=== PATIENT | female | born 1995 | race Caucasian/White ===

== ENCOUNTER 2022-01-08 15:30 | Outpatient (NON) | payer OTHER, SELFPAY ==
[2022-01-08 18:59] LABS: Beta HCG Quantitative < 2.39 mIU/ML
[2022-01-08 19:23] LABS: HIV 1/2 Ab P24 Ag Result Negative (Negative)
[2022-01-08 19:30] LABS: Hepatitis C Virus Antibody Negative (Negative)
[2022-01-09 16:18] LABS: Rapid Plasma Reagin Non-Reactive (NonReactive)
[2022-01-11 14:46] LABS: Hepatitis B Core Ab Total Nonreactive
[2022-01-14 07:54] LABS: Herpes Simplex Type 1 DNA PCR Not Detected; Herpes Simplex Type 2 DNA PCR Not Detected
== END 2022-01-08 15:31 | disposition home or self-care (01) ==
LOC: ANHGOSHLAB 15:32
PROVIDERS: PCP Internal Medicine; Visit Provider Clinical Nurse Specialist
DX: N92.6 Irregular menstruation, unspecified (principal); Z20.2 Contact with and (suspected) exposure to infections with a predominantly sexual mode of transmission
CPT/HCPCS: 36415; 84702; 86592; 86703; 86704; 86803; 87491; 87529; 87591; G0432

== ENCOUNTER 2023-03-17 07:23 | Outpatient (CLI) | payer OTHER, SELFPAY ==
--- NOTE | 2023-03-17 07:28 | ECHO_ITS ---
Patient Info Name: Kayla Jose Age: 27 years : 1995 Gender: Female Ht: 65 in Wt: 132 lbs BSA: 1.66 m2 HR: 66 bpm BP: 114 / 73 mmHg Heart Rhythm: Sinus Rhythm Technical Quality: Good Exam Date: 03/17/2023 7:45 AM Exam Location: Echo Lab Patient Status: Outpatient Admit Date: 03/17/2023 Staff Ordering Physician: Aurelia Mueller Soubrette: Yolanda Baca RDCS Attending Provider: Aurelia Mueller Referring Physician: Ervin MICHELE; Exam Type: CA echo doppler color flow Study Info Indications - Prescence of prosthetic heart valve Complete two-dimensional, color flow and Doppler transthoracic echocardiogram is performed. Summary 1. Complete two-dimensional, color flow and Doppler transthoracic echocardiogram is performed. 2. Normal left and right ventricular systolic and diastolic function. 3. Prosthetic aortic valve which is nonstenotic there is a trivial jet of prosthetic AI. 4. The type of aortic prosthesis was not specified on this request, identity valve therefore not known to me. Left Ventricle Left ventricular chamber dimension is normal. Left ventricular systolic function is normal, estimated at 60-65%. The left ventricular diastolic function is normal. Right Ventricle Right ventricular chamber dimension is normal. Left Atria Left atrial chamber dimension is normal. Right Atria Right atrial chamber dimension is normal. Aortic Valve There is trace regurgitation of the prosthetic aortic valve. Pulmonic Valve The pulmonic valve is not well visualized. Mitral Valve The mitral valve has normal leaflets. Tricuspid Valve The tricuspid valve leaflets are normal. Pericardium/Pleural The pericardium appears normal. Aorta The aortic root size at the sinus of Valsalva is normal. Left Ventricular Outflow Tract Name Value Normal LVOT 2D LVOT Diameter 2.0 cm LVOT Doppler LVOT Peak Gradient 2 mmHg LVOT Mean Gradient 1 mmHg LVOT VTI 16 cm LVOT VTI/AV VTI Ratio 0.4 LVOT Stroke Volume 50 ml LVOT CO 2.9 l/min LVOT CI 1.8 l/min/m2 Pulmonic Valve Name Value Normal RVOT Doppler RVOT Peak Gradient 3 mmHg PV Doppler PV Peak Gradient 18 mmHg Mitral Valve Name Value Normal MV Doppler MV Decel [place] 560 cm/s2 MV PHT 47 ms MV Area (PHT) 4.7 cm2 4.0-5
== END 2023-03-17 07:24 | disposition home or self-care (01) ==
LOC: ANHCARD 07:24
PROVIDERS: PCP Internal Medicine; Visit Provider Clinical Nurse Specialist
DX: Z95.2 Presence of prosthetic heart valve (principal)
CPT/HCPCS: 93306

== ENCOUNTER 2024-08-17 10:50 | Outpatient (CLI) | payer OTHER, SELFPAY ==
--- OUTSIDE RECORDS SUMMARY | 2024-08-17 11:57 | XMS_ITS | Encounter Summary ---
Author Organization [facility] Address [address] [place] [address] Care Team Providers Care Street Inspector Name Role Phone Eric Simmons DO Primary Care Provider Reason for Visit * Reason Comments Establish Care Encounter Details Date Type Department Care Team (Late st Contact Info) Description 08/17/2024 10:30 AM CDT Office Visit [facility] Oncology and Hematology - [place] [address] [facility] [address] [place] [address] Hermes Hernández MD [address] [facility] [address] [place] [address] Clotting disorder (Primary Dx) Social History Tobacco Use Types Packs/Day Years Used Date Smoking Tobacco: Never Smokeless Tobacco: Never Alcohol Use Standard Drinks/Week Comments Yes 0 (1 standard drink = 0.6 oz pur e alcohol) occasional Comments No Sex and Gender Information Value Date Recorded Sex Assigned at Not on file Legal Sex Female 9:11 AM CDT Gender Identity Not on file Sexual Orientation Not on file documented as of this encounter Last Filed Vital Signs Vital Sign Reading Time Taken Comments Blood Pressure 102/69 08/17/2024 10:10 AM CDT Pulse 60 08/17/2024 10:10 AM CDT Temperature 36.1 C (97 F) 08/17/2024 10:10 AM CDT Respiratory Rate 16 08/17/2024 10:1 0 AM CDT Oxygen Saturation 98% 08/17/2024 10: 10 AM CDT Inhaled Oxygen Concentration - - Weight 63.9 kg (140 lb 12.8 oz) 025 10:10 AM CDT Height 165.1 cm (5' 5) 08/17/2024 10:1 0 AM CDT Body Mass Index 23.43 08/17/2024 10:10 AM CDT documented in this encounter Progress Notes * Hermes Hernández MD - 08/17/2024 10:27 AM CDT Hematology-oncology consult Note Requesting Physician Eric Simmons, DO Primary Care Physician Eric Simmons, DO Problem list There is no problem list on file for this patient. Previous TREATMENT ? Measurable Disease ? Reason for Visit Kayla Jose is a 28 y.o. female who was referred for consultation for chronic anticoagulation management. History of present illness This is a pleasant 28-year-old female with history of congenital bicuspid aortic valve status post balloon valvuloplasty at age of 1 and then aortic valve replacement with Cole AVR 2018. Patient had ablation of atrial flutter done in January 2021. She has been on warfarin since 2018. Shemoved from [place] about 2 years ago. Currently she is taking warfarin 20 mg every other day basis. Her last PT/INR was 2.6 about 3 months ago. According to patient she runs around 1.8-2.5 INR. He denies any bleeding and bruising. She denies any other history of thromboembolic events including stroke and heart attack. She used to monitor PT/INR at home with a home monitor. She denies any other complaints. Past Medical History Past Medical History: Diagnosis Date Depression Congenital bicuspid aortic valve status post balloon valvuloplasty and subsequent aortic valve replacement in 2018 Atrial flutter status post ablation GERD Anxiety Surgical History Past Surgical History: Procedure Laterality Date ENDOMETRIAL ABLATION 2019 HX AORTIC VALVE REPLACEMENT 2015,2018 Medications Current Outpatient Medications Medication Sig Dispense Refill spironolactone (ALDACTONE) 25 mg tablet Take 25 mg by mouth daily. warfarin 1 mg tablet Take 1 mg by mouth daily. metoprolol succinate ER 50 mg tablet,extended release 24 hr Take 50 mg by mouth daily. No current facility-administered medications for this visit. Allergies No Known Allergies Immunizations: There is no immunization history on file for this patient. Family History Family History Problem Relation Name Age of Onset No Known Problems Father No Known Problems Mother No Known Problems Sister No Known Problems Sister No Known Problems Brother No Known Problems Child No Known Problems Child Social History Social History Tobacco Use Smoking status: Never Smokeless tobacco: Never Substance Use Topics Alcohol use: Yes Comment: occasional Review of Systems Constitutional: Patient did not mention fever; no night sweats; no anorexia; no weight loss; no fatique NEENT: Patient did not mention headache; no change in vision; no change in hearing; no sore throat;no dysphagia Respiratory: Patient did not mention shortness of breath; no pleuritic chest pain; no cough; no hemoptysis Cardiac: Patient did not mention cardiac-like chest pain; no palpitations; no orthopnea; no PND; noDOE Breasts: Patient did not mention tenderness; no masses GI: Patient did not mention abdominal pain; no nausea; no vomiting; no diarrhea; no hematochezia; no melena : Patient did not mention dysuria; no frequency; no hesitancy; no hematuria COMMERCIAL ANNOUNCER: Musculosketetal: Patient did not mention bone pain; no arthralgia; no joint swelling; no myalgia; Skin: Patient did not mention pruritis; no rash; no petechiae; no ecchymoses Endocrine: Patient did not mention polydipsia; no polyuria; no unusual weight gain Neuro: Patient did not mention headache; no change in vision; no sensory changes; no muscle weakness; no confusion; no seizures Psych: Patient did not mention anxiety; no depression; Physical Exam Vitals: As per nursing note Constitutional: Well developed, well nourished, no acute distress, non-toxic appearance Teeth and gum. No signs of infection or swelling. Eyes: PERRL, conjunctiva normal HEENT: Atraumatic, external ears normal, nose normal, oropharynx moist, no pharyngeal exudates. no sinus tenderness Neck- normal range of motion, no tenderness, supple Respiratory: No respiratory distress, normal breath sounds, no rales, no wheezing . Cardiovascular: Normal rate, normal rhythm, no murmurs, no gallops, no rubs GI: Soft, nondistended, normal bowel sounds, nontender, no splenomegaly, no hepatomegaly, no mass, no rebound, no guarding : No costovertebral angle tenderness Musculoskeletal: No edema, no tenderness, no deformities. Back- no tenderness Integument: Well hydrated, no rash, Digits and nails inspection normal Lymphatic: No lymphadenopathy noted Neurologic: Alert & oriented x 3, CN 2-12 normal, normal motor function, normal sensory function, no focal deficits noted Psychiatric: Speech and behavior appropriate ? labs No results found for this or any previous visit (from the past 24 hours). Pathology ? Imaging & Other Studies Performance Status? Assessment / Plan: ? Anticoagulation management. Patient is a pleasant 28-year-old female with history of congenital bicuspid aortic valve status post balloon valvuloplasty at age of 1 then subsequent aortic valve replacement with cole AVR 2018. Patient had ablation for the atrial flutter done in January 2021. She moved from [place] about 2 years ago[address] She seen Dr. Torres in the cardiology. Currently she is on warfarin 20 mg on every other day basis. I will check PT/INR today. Based on the INR we will decide about the warfarin dose. I prefer warfarin 20 mg on a daily basis but will make the decision after PT/INR reading. I will check PT/INR on every 2-week basis until her INR stabilizes on a daily do sing. I also recommended getting a PT/INR to monitor. We also discussed teratogenic effect of warfarin and suggested using copper IUD. I recommended avoiding oral control pills due to risk of thromboembolic events. I have answered all the questions to patient satisfaction. I will discuss the labs next week. Atrial flutter status post ablation done in February 15, 2021. She is on warfarin and aspirin. She will follow-up with Dr. Torres. Thank you very much for allowing me to participate in Kayla Jose's evaluation and management. Please feel free to contact if I can be of any further assistance in your patient???s care requiring hematology or oncology evaluation. Sincerely, ? ? Hermes Hernández M.D. cell TOBACCO COUNSELING She is not a tobacco/nicotine user. Hermes Hernández MD ,08/17/2024 10:59 AM ? Total time spent 60 minutes, two third of the total time spent counseling patient [id number]. CC:?Eric Simmons DO documented in this encounter Plan of Treatment Upcoming Encounters Date Type Department Care Team (Late st Contact Info) Description 08/24/2024 4:30 PM CDT Telephone Check Up [facility] Oncology and Hematology - [place] [address] [facility] [address] [place] [address] Hermes Hernández MD [address] [facility] [address] [place] [address] Scheduled Orders Name Type Priority Associated Diagnoses Orde r Schedule PROTIME-INR Lab Routine Clotting disorder Expected: 08/17/2024, Expires: 08/17/2025 documented as of this encounter Visit Diagnoses Diagnosis Clotting disorder- Primary Other and unspecified coagulation defects documented in this encounter Care Teams Street Inspector Relationship Specialty Start Date End Date Eric Simmons DO [address] [facility] [address] [place] [address] PCP - General 08/20/22 documented as of this encounter
--- OUTSIDE RECORDS SUMMARY | 2024-08-17 11:57 | XMS_ITS | Clinical Summary ---
Author Organization [facility] on Address [address] [place] [id number] Care Team Providers Care Benefit Specialist Name Role Phone Eric Simmons DO Primary Care Provider Allergies No known active allergies Medications warfarin 1 mg tablet Take 1 mg by mouth daily. 10/24/2021 Active metoprolol succinate ER 50 mg tablet,extended release 24 hr Take 50 mg by mouth daily. 10/23/2021 Active spironolactone (ALDACTONE) 25 mg tablet Take 25 mg by mouth daily. Active Active Problems No known active problems Encounters Date Type Department Care Team Description 08/17/2024 10:30 AM CDT Office Visit [facility] Oncology and Hematology - [place] [address] [address] [address] Hermes Hernández MD Clotting disorder (Primary Dx) from Last 3 Months Family History Medical History Relation Name Comments No Known Problems Brother No Known Problems Child 1 No Known Problems Child 2 No Known Problems Father No Known Problems Mother No Known Problems Sister 1 No Known Problems Sister 2 Relation Name Status Comments Brother Alive Child 1 Alive Child 2 Alive Father Alive Mother Sister 1 Alive Sister 2 Alive Social History Tobacco Use Types Packs/Day Years Used Date Smoking Tobacco: Never Smokeless Tobacco: Never Alcohol Use Standard Drinks/Week Comments Yes 0 (1 standard drink = 0.6 oz pur e alcohol) occasional Comments No Sex and Gender Information Value Date Recorded Sex Assigned at Not on file Legal Sex Female 9:11 AM CDT Gender Identity Not on file Sexual Orientation Not on file Last Filed Vital Signs Vital Sign Reading [...] Mass Index 23.43 08/17/2024 10:10 AM CDT Plan of Treatment Upcoming Encounters Date Type Department Care Team (Late st Contact Info) Description 08/24/2024 4:30 PM CDT Telephone Check Up [facility] Oncology and Hematology [facility] [address] [facility] [address] [place] [address] Hermes Hernández MD [address] [facility] [address] [place] [address] Health Maintenance Due Date Last Done Comments HEPATITIS B VACCINES (1 of 3 - 19+ 3-dose series) 2012 HPV/Cotest (21-29) 2014 CERVICAL CANCER SCREENING 08/28/2023 HPV/Cotest (30-65) 08/28/2023 PAP SMEAR 08/28/2023 INFLUENZA VACCINE (#1) 2023 0, 12/22/2017, 01/03/2015, Additional history exists DTAP/TDAP/TD VACCINES (2 - Td or Tdap) 01/22/2024 01/21/2014 Preventative Visit- Commercial 03/03/2024 HPV VACCINES Aged Out No longer eligi ble based on patient's age to complete this topic Insurance [facility] [employer] Care Teams Benefit Specialist Relationship Specialty Start Date End Date Eric Simmons DO [address] [facility] [address] [place] [address] PCP - General 08/20/22
--- OUTSIDE RECORDS SUMMARY | 2024-08-17 11:57 | XMS_ITS | Continuity of Care Document ---
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 It does not include entries that were removed or entered in error. Problem Status Onset Date Problem Type Date of Resolution Comments Source Generalized anxiety disorder Active 08/07/2017 Condition DoD Adjustment disorder with mixed anxiety and depressed mood Active 12/07/2014 Condition DoD visit for: exam supervision Active Condition DoD visit for: screening exam depression Active Condition DoD breast pain Active Condition DoD PUERPERAL COMPLICATIONS CONDITION OR COMPLICATION Active Condition DoD itching (pruritus) Inactive Condition Do D heartburn Inactive Condition [facility] Vaccines Prophylactic Need Against DTP Inactive Condition DoD Supervision Of Normal First Inactive Condition DoD nausea Inactive Condition DoD PREG COMPLICATIONS: ANTEPARTUM COND OR PRIOR COMP DELIVERY Inactive Condition DoD AORTIC STENOSIS Active Condition DoD CLASSIC MIGRAINE (WITH AURA) Active Condition DoD Medications Combined list of outpatient medications from Department of Defense and Veterans Affairs facilities.Medications provided include 1) outpatient medications from the last 15 months, and 2) patient-reported medications. Medication Details Route Status Patient Instructions Prescription Expires Prescription Number Last Dispense Date Ordering Provider Order Date Order Qty Source amoxicillin 500 mg oral capsule 0 total refill(s ) Ordered 2021 No Facilit y Access amoxicillin 500 mg oral capsule 0 total refill(s ) Ordered 2021 No Facilit y Access amoxicillin 500 mg oral capsule 0 total refill(s ) Ordered 2021 No Facilit y Access cephalexin 500 mg oral capsule 0 total refill(s ) Ordered 2021 No Facilit y Access enoxaparin 60 mg/0.6 mL injectable solution enoxapar in 60 mg/0.6 mL injectab le solution Start Date: 02/22/21 Status: Ordered Repeat number: 1 Ordered 2021 No Facilit y Access enoxaparin 60 mg/0.6 mL injectable solution enoxapar in 60 mg/0.6 mL injectab le solution Start Date: 02/27/21 Status: Ordered Repeat number: 1 Ordered 2021 No Facilit y Access enoxaparin 60 mg/0.6 mL injectable solution enoxapar in 60 mg/0.6 mL injectab le solution Start Date: 02/09/21 Status: Ordered Repeat number: 1 Ordered 2021 No Facilit y Access enoxaparin 60 mg/0.6 mL injectable solution enoxapar in 60 mg/0.6 mL injectab le solution Start Date: 11/30/20 Status: Ordered Repeat number: 1 Ordered 2021 No Facilit y Access enoxaparin 60 mg/0.6 mL injectable solution enoxapar in 60 mg/0.6 mL injectab le solution Start Date: 11/26/20 Status: Ordered Repeat number: 1 Ordered 2021 No Facilit y Access FLUoxetine 20 mg oral capsule FLUoxeti ne 20 mg oral capsule Start Date: 03/17/21 Status: Ordered Repeat number: 1 Ordered 2021 No Facilit y Access hydrocortis one 25 mg rectal suppository hydrocor tisone 25 mg rectal supposit ory Start Date: 10/18/20 Status: Ordered Repeat number: 1 Ordered 2021 No Facilit y Access HYDROXYZINE HCL (HYDROXYZIN E HCL), 25 MG, TABLET, ORAL, TEVA [place], 500 ea. BOTTLE Cancele d [id number] : 2023 0 Pharmac y Data Transac tion Service Facilit y hydrOXYzine hydrochlori de 25 mg oral tablet hydrOXYz ine hydrochl oride 25 mg oral tablet Start Date: 03/17/21 Status: Ordered Repeat number: 1 Ordered 2021 No Facilit y Access hyoscyamine 0.125 mg oral tablet hyoscyam ine 0.125 mg oral tablet Start Date: 01/09/21 Status: Ordered Repeat number: 1 Ordered 2021 No Facilit y Access ISOtretinoi n 30 mg oral capsule ISOtreti noin 30 mg oral capsule Start Date: 09/24/20 Status: Ordered Repeat number: 1 Ordered 2021 No Facilit y Access ISOtretinoi n 30 mg oral capsule ISOtreti noin 30 mg oral capsule Start Date: 08/27/20 Status: Ordered Repeat number: 1 Ordered 2021 No Facilit y Access ISOtretinoi n 30 mg oral capsule ISOtreti noin 30 mg oral capsule Start Date: 06/10/20 Status: Ordered Repeat number: 1 Ordered 2021 No Facilit y Access ISOtretinoi n 30 mg oral capsule ISOtreti noin 30 mg oral capsule Start Date: 05/07/20 Status: Ordered Repeat number: 1 Ordered 2021 No Facilit y Access ISOtretinoi n 40 mg oral capsule ISOtreti noin 40 mg oral capsule Start Date: 04/09/20 Status: Ordered Repeat number: 1 Ordered 2021 No Facilit y Access metoprolol succinate 50 mg oral tablet, extended release metoprol ol succinat e 50 mg oral tablet, extended release Start Date: 02/21/21 Status: Ordered Repeat number: 1 Ordered 2021 No Facilit y Access nitrofurant oin macrocrysta ls-monohydr ate 100 mg oral capsule 0 total refill(s ) Ordered 2021 No Facilit y Access NORETHINDRO NE (norethindr one), 0.35 MG, TABLET, ORAL, MYLAN, 28 ea. BLIST PACK Active [id number] 2023 84 Pharmac y Data Transac tion Service Facilit y norgestimat e-ethinyl estradiol 35 mcg oral tablet norgesti mate-eth inyl estradio l 35 mcg oral tablet Start Date: 09/24/20 Status: Ordered Repeat number: 1 Ordered 2021 No Facilit y Access norgestimat e-ethinyl estradiol 35 mcg oral tablet norgesti mate-eth inyl estradio l 35 mcg oral tablet Start Date: 07/09/20 Status: Ordered Repeat number: 1 Ordered 2021 No Facilit y Access norgestimat e-ethinyl estradiol 35 mcg oral tablet norgesti mate-eth inyl estradio l 35 mcg oral tablet Start Date: 08/26/20 Status: Ordered Repeat number: 1 Ordered 2021 No Facilit y Access sertraline 50 mg oral tablet sertrali ne 50 mg oral tablet Start Date: 02/06/21 Status: Ordered Repeat number: 1 Ordered 2021 No Facilit y Access sertraline 50 mg oral tablet sertrali ne 50 mg oral tablet Start Date: 01/04/21 Status: Ordered Repeat number: 1 Ordered 2021 No Facilit y Access SUMAtriptan 100 mg oral tablet SUMAtrip rodriguez 100 mg oral tablet Start Date: 02/06/21 Status: Ordered Repeat number: 1 Ordered 2021 No Facilit y Access SUMAtriptan 100 mg oral tablet SUMAtrip rodriguez 100 mg oral tablet Start Date: 11/15/20 Status: Ordered Repeat number: 1 Ordered 2021 No Facilit y Access SUMAtriptan 100 mg oral tablet SUMAtrip rodriguez 100 mg oral tablet Start Date: 05/23/20 Status: Ordered Repeat number: 1 Ordered 2021 No Facilit y Access topiramate 50 mg oral tablet topirama te 50 mg oral tablet Start Date: 02/06/21 Status: Ordered Repeat number: 1 Ordered 2021 No Facilit y Access topiramate 50 mg oral tablet topirama te 50 mg oral tablet Start Date: 09/24/20 Status: Ordered Repeat number: 1 Ordered 2021 No Facilit y Access topiramate 50 mg oral tablet topirama te 50 mg oral tablet Start Date: 05/23/20 Status: Ordered Repeat number: 1 Ordered 2021 No Facilit y Access tretinoin 0.025% topical cream tretinoi n 0.025% topical cream Start Date: 02/06/21 Status: Ordered Repeat number: 1 Ordered 2021 No Facilit y Access tretinoin 0.025% topical cream tretinoi n 0.025% topical cream Start Date: 11/05/20 Status: Ordered Repeat number: 1 Ordered 2021 No Facilit y Access valACYclovi r 500 mg oral tablet 3 total refill(s ) Ordered 2021 No Facilit y Access verapamil 120 mg/12 hours oral tablet, extended release verapami l 120 mg/12 hours oral tablet, extended release Start Date: 02/06/21 Status: Ordered Repeat number: 1 Ordered 2021 No Facilit y Access verapamil 120 mg/12 hours oral tablet, extended release verapami l 120 mg/12 hours oral tablet, extended release Start Date: 11/06/20 Status: Ordered Repeat number: 1 Ordered 2021 No Facilit y Access verapamil 120 mg/12 hours oral tablet, extended release verapami l 120 mg/12 hours oral tablet, extended release Start Date: 12/04/20 Status: Ordered Repeat number: 1 Ordered 2021 No Facilit y Access warfarin 10 mg oral tablet warfarin 10 mg oral tablet Start Date: 03/28/21 Status: Ordered Repeat number: 1 Ordered 2021 No Facilit y Access warfarin 3 mg oral tablet warfarin 3 mg oral tablet Start Date: 02/06/21 Status: Ordered Repeat number: 1 Ordered 2021 No Facilit y Access warfarin 3 mg oral tablet warfarin 3 mg oral tablet Start Date: 11/30/20 Status: Ordered Repeat number: 1 Ordered 2021 No Facilit y Access warfarin 5 mg oral tablet warfarin 5 mg oral tablet Start Date: 08/23/20 Status: Ordered Repeat number: 1 Ordered 2021 No Facilit y Access warfarin 6 mg oral tablet warfarin 6 mg oral tablet Start Date: 09/24/20 Status: Ordered Repeat number: 1 Ordered 2021 No Facilit y Access warfarin 6 mg oral tablet warfarin 6 mg oral tablet Start Date: 05/23/20 Status: Ordered Repeat number: 1 Ordered 2021 No Facilit y Access WARFARIN SODIUM (WARFARIN SODIUM), 10MG, TABLET, ORAL, TARO PHARM [place], 100 ea. BOTTLE Cancele d [id number] : 2023 0 Pharmac y Data Transac tion Service Facilit y WARFARIN SODIUM (WARFARIN SODIUM), 10MG, TABLET, ORAL, [employer] [place], 100 ea. BOTTLE Cancele d [id number] : 2023 0 Pharmac y Data Transac tion Service Facilit y Allergies, Adverse Reactions, Alerts Combined list of allergies from Department of Defense and Veterans Affairs facilities. It does not include entries that were removed or entered in error. Substance Category Reaction Severity Reaction type Status Date Reported Comments Source No Known Allergies Drug allergy (disorder) active 08/12/2013 USAMEDDA C [facility] Immunizations Combined list of available immunizations from the Department of Defense and Veterans Affairs facilities. Immunization Series Date Given Administered By Site Reaction Lot Number CVX Code Drug Marketing Operations Analyst Status Comments Source influenza, injectable, quadrivalent 2017 Heidi Arm [id number] [employer] complet ed influenza , injectabl e, quadrival ent 12/22/17 Given Ambulat ory Pharmac y influenza, injectable, quadrivalent, contains preservative 1 2017 MIMACARANOLAN D [id number] [place] ([place]) complet ed influenza , injectabl e, quadrival ent, contains preservat maryjane DoD influenza, live, intranasal,qu adrivalent 2014 [id number] [employer] comple t ed influenza , live, intranasa l,quadriv alent 01/03/15 Given Ambulat ory Pharmac y influenza, live, intranasal, quadrivalent 0 2014 GELACIO MENJIVAR [id number] [facility] [employer] (MED) complet ed influenza , live, intranasa l, quadrival ent DoD tetanus, diphtheria, acellular pertu is 2013 zDavidef t Arm [id number] 115 [employer] complet ed tetanus, diphtheri a, acellular pertussis 01/21/14 Given Ambulat ory Pharmac y tetanus toxoid, reduced diphtheria toxoid, and acellular pertu is vaccine, adsorbed 0 2013 NAYE BUNCH [id number] 115 [facility] ([facility]) complet ed tetanus toxoid, reduced diphtheri a toxoid, and acellular pertussis vaccine, adsorbed DoD influenza, seasonal, injectable-pf 2013 zzLef t Arm [id number] [employer] [facility] complet ed influenza , seasonal, injectabl e-pf 12/30/13 Given Ambulat ory Pharmac y Influenza, seasonal, injectable, preservative free 0 2013 STEVE WILKINS [id number] [employer] 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 Location Location Details Encounter Type Encounter Number Reason For Visit Attending Provider ADM Date DC Date Status Disposition Source [place] OUTPATIENT [id number] [facility] Zonia / first appoint ment with provide YESENIA Conte 08/12 Released w/o Limitations [place] [place] [place] TELE CONSULT [id number] Notes Entered by: YESENIA GIBBS 12 Aug 2013 1616 ------- ------- ------- ------- -- positiv e pregnan cy JOE Argueta 08/12 [place]erred [place] Appointment [place] [place] [place] TELE CONSULT [id number] Notes Entered by: RUBEN HERRERA 17 Aug 2013 1005 ------- ------- ------- ------- -- OB intake RUBEN HERRERA 08/17 [place] for Appointment [place] F01A Red) [place] [employer] Hel[employer] at [facility]) TELE CONSULT [id number] Notes Entered by: STEVE WILKINS 20 Aug 2013 1420 ------- ------- ------- ------- -- appt to [facility] STEVE WILKINS 08/20 [place]erred for Appointment [place] [employer] [facility] at [facility]) [place] [employer] Layer Hel[employer] at [facility]) TELE CONSULT [id number] Notes Entered by: Yecenia GARCIA 23 Aug 2013 1000 ------- ------- ------- ------- -- appt to [facility] PARKER GARCIA 08/23 Referred for Appointment [facility] [place] [employer] at [facility]) [place] F01A Red) TELE CONSULT [id number] Notes Entered by: RUBEN HERRERA 24 Aug 2013 0910 ------- ------- ------- ------- -- Referra l request via [facility] YESENIA GIBBS 08/24 [place] [place] [employer] at [facility]) OUTPATIENT [id number] OR REG / HAS CELESTE BACA 08/31 Released w/o Limitations [place] [employer] [facility] at [facility]) [place] [employer] Layer Hel[employer] at [facility]) TELE CONSULT [id number] Notes Entered by: IMANI BATEMAN 13 Sep 2013 1513 ------- ------- ------- ------- -- request NOLAN Sevilla 09/13 [place] [employer] [facility] at [facility]) [place] [employer] Hel[employer] at [facility]) OUTPATIENT [id number] [facility] OB JAVI WOOD 10/04 Released w/o Limitations [place] [employer] at [facility]) [place] [place] TELE CONSULT [id number] Notes Entered by: TATE RAY 12 Oct 2013 1011 ------- ------- ------- ------- -- referra l request YESENIA GIBBS 10/12 [facility] [place] [place] [place] [employer] Hel[employer] at [facility]) TELE CONSULT [id number] Notes Entered by: STEVE WILKINS 12 Oct 2013 1307 ------- ------- ------- ------- -- STEVE Smith 10/12 [place]erred for Appointment [place] [employer] [facility] at [facility]) [place] [employer] Hel[facility] at [facility]) OUTPATIENT [id number] PAULO Mendoza 10/14 [place]ased w/o Limitations [place] [facility] at [facility]) [place] [employer] Layer Hel[employer] at [facility]) TELE CONSULT [id number] Notes Entered by: IMANI BATEMAN 20 Oct 2013 0922 ------- ------- ------- ------- -- stomach bug greater than 24 hours LUPE BATEMAN 10/20 Medication Refill Forwarded [facility] [place] [employer] at [facility]) [place] [employer] Hel[employer] at [facility]) OUTPATIENT [id number] DOROTA Ludwig 11/04 Released w/o Limitations [facility] [place] [facility] at [facility]) [place] [employer] at [facility]) OUTPATIENT [id number] 17 weeks possibl e BV (book per Imani shipman)DOROTA Mcclellan 11/08 Released w/o Limitations [facility] [place] [facility] at [facility]) [facility] [place] [employer] at [facility]) OUTPATIENT [id number] DOROTA Ludwig 11/25 Released w/o Limitations [facility] [place] [facility] at [facility]) [facility] [employer] Hel[employer] at [facility]) OUTPATIENT [id number] DOROTA Ludwig 12/30 [place]ased w/[place] Limitations [place] [employer] [facility] [employer] Hel[employer] at [facility]) OUTPATIENT [id number] Notes Entered by: KWAME ELENA 02 Feb 2014 0939 ------- ------- ------- ------- -- pt was seen DOROTA Bell 02/02 Released w/o Limitations [facility] [place] [facility] [place] [employer] Hel[employer] at [facility]) OUTPATIENT [id number] 34 week DOROTA Raza 03/10 Released w/o Limitations [facility] [place] [employer] [facility] at [facility]) [facility] [place] [employer] at [facility]) OUTPATIENT [id number] DOROTA Ludwig 03/17 Released w/o Limitations [place] [employer] at [facility]) [place] [facility] ) OUTPATIENT [id number] Notes Entered by: JENN COLLAZO 22 Mar 2014 0750 ------- ------- ------- ------- -- L&D outpati NAZANIN Ascencio 03/22 Released w/o Limitations [facility] [place] [employer] at [facility]) OUTPATIENT [id number] DOROTA Ludwig 03/31 Released w/o Limitations [facility] [place] [facility] [facility] [facility] [place] at [facility]) OUTPATIENT [id number] DOROTA Ludwig 04/07 Released w/o Limitations [place] [employer] [facility] at [facility]) [place] [employer] at [facility]) OUTPATIENT [id number] centeri stefano DOROTA DANIEL 04/14 Released w/o Limitations [place] [employer] Layer Hel[facility] at [facility]) [facility] DIRECT TO [facility] FROM OTHER THAN ER OR [facility] [id number] NOLAN LACKEY Camelia 04/19 DISCHARGED HOME USAMEDD [place] [employer] Hel[employer] at [facility]) OUTPATIENT [id number] post DOROTA DANIEL 06/09 Released w/o Limitations [place] [employer] at [facility]) [place] [place] TELE CONSULT [id number] Notes Entered by: POPPY VARGHESE 19 Sep 2014 0731 ------- ------- ------- ------- -- NAL Encount er- Referra OSMANI Beth 09/19 [place] [place] [place]) OUTPATIENT [id number] PCM Zonia /reoccu ring migrain OSMANI Mahan 11/08 [place]ased w/o Limitations [place] [place] [place] TELE CONSULT [id number] Notes Entered by: CAROLA PARTIDA 23 Nov 2014 1530 ------- ------- ------- ------- -- Pcm Zonia / PT took at home pregnan cy test and read HESHAM Dinh 11/23 Referred- Emergency Department [facility] [place] [place] [place] TELE CONSULT [id number] Notes Entered by: PURNIMA TRAN RA 24 Nov 2014 0852 ------- ------- ------- ------- -- Pcm Zonia - needs f/u [facility] ER 11/23/14 loosing her baby current HUSSEIN Gallagher 11/24 [place]erred for Appointment [place] [place] OUTPATIENT [id number] [facility] SUYAPA ANAYA 11/25 Released w/o Limitations [place] [place] [place] OUTPATIENT [id number] PCM Zonia /resche duled med dosage review OSMANI DRAKE P 12/07 [place]ased w/o Limitations [place] [place] [facility] [place] [place]) [place] [id number] [facility] MARTHA DENTON 12/21 Released w/o Limitations [place] [place] [place] TELE CONSULT [id number] Notes Entered by: GEOFF ALBARADO 26 Dec 2014 0846 ------- ------- ------- ------- -- CLR Report- Cardio -Echoca rdiogra phy Report 5 OSMANI DRAKE P 12/26 [facility] [place] [facility] [place] [place]) [place]IENT [id number] follow up per OSMANI Preciado P 01/03 Released w/o Limitations [facility] [place] [place]) OUTPATIENT [id number] pcm-chelsea eman / referra adeline--damian estrada medicat julius PORSHANENA ARISTIDES E 10/11 Released w/o Limitations [place] F01B Blue) [place] F01B Blue) TELE CONSULT [id number] Notes Entered by: Rosa FIGUEROA 14 Nov 2015 1640 ------- ------- ------- ------- -- PCM ALMA : Pt no-show ed appt on Nov 16 for WW/pap. MENJIVAR GELACIO M 11/13 Other Not Elsewhere Classified [place] F01B Blue) [place] F01B Blue) OUTPATIENT [id number] OSMANI Leonardo 11/23 Released w/o Limitations [place] F01B Blue) [place] F01B Blue) TELE CONSULT [id number] Notes Entered by: NATALY LUO 22 Dec 2015 1104 ------- ------- ------- ------- -- CLR Report- Cardio- Dizzine ss and Chest Discomf ort 6 ARISTIDES BRAXTON 12/21 [place] F01B Blue) TELE CONSULT [id number] Notes Entered by: NANDA MILLER 31 Jan 2016 1223 ------- ------- ------- ------- -- PCM Alma / Pt is experie ELVIA Milligan 01/30 [place]erred [place] Appointment [place] [place] TELE CONSULT [id number] Notes Entered by: Joshua BURGESS 02 Feb 2016 0744 ------- ------- ------- ------- -- contact after pt igor BALDEV BURGESSRICIA 02/01 [facility]erred for App[facility]ment [facility] [place] [place] [facility] [place] [place] TELE CONSULT [id number] Notes Entered by: JERAD VELARDE Y 05 Feb 2016 1605 ------- ------- ------- ------- -- Ángel ware coordin atjulius VELARDEMANDIE 02/04 Referred for App[facility]ment [facility] [place] [facility] [place] OUTPATIENT [id number] PCM:CHELSEA EMAN PERSIST ANT COLD/CO OSMANI JOY 04/01 Released w/o Limitations [facility] [place] [place] [facility] [place] [place] OUTPATIENT [id number] pcm-chelsea eman / cough and wheezin OLIVIER Santos 04/05 Released w/o Limitations [facility] [place] Wilfredo [facility] [place] [employer] ) TELE CONSULT [id number] Notes Entered by: VNEKAT MASON 18 Jun 2016 1246 ------- ------- ------- ------- -- OB Late Entry or Transfe r In ANA GLORIA 06/18 Wilfredo [facility] [place]) Villalobos [facility] [place] FM 1[place] OUTPATIENT [id number] referra ALDA Taylor 07/11 Released w/o Limitations [facility] [place] [place] 1[place] [facility], later [facility] [place] 1[place] TELE CONSULT [id number] Notes Entered by: MELANIA GRANT 30 Aug 2016 1403 ------- ------- ------- ------- -- NETWORK RESULT- CARDIOL OGY--F [id number] RITESH SIERRA 08/30 [facility] [place] [facility] [place] TELE CONSULT [id number] Notes Entered by: MELANIA GRANT 18 Sep 2016 1245 ------- ------- ------- ------- -- NETWORK RESULT- CARDIOL OGY/ECH O-09/12-FAX [id number] ALDA RICHARDS 09/18 [facility] [place] [facility] [place] TELE CONSULT [id number] Notes Entered by: MELANIA GRANT 19 Sep 2016 0743 ------- ------- ------- ------- -- NETWORK RESULT- CARDIOL OGY--F [id number] ALDA RICHARDS 09/19 [place] [place] TELE CONSULT [id number] Notes Entered by: MARIA ESTHER DAY 30 Dec 2016 1348 ------- ------- ------- ------- -- Tod RICHARDS NETWORK RESULTS CARDIOL OUGY 10/02/16 FAX DOC (2) RITESH SIERRA 12/30 [facility] [place] 1[place] [facility] [place] 2) OUTPATIENT [id number] headach rosa/angela BERKOWITZCODY WILSONLO 01/21 Released w/o Limitations [facility] [place] 2) [facility] [place] 1[place] TELE CONSULT [id number] Notes Entered by: Aliza PLAZA 04 Mar 2017 0833 ------- ------- ------- ------- -- Hinote; Fever Blister Medicat FARHAD HilarioELA Rosa 03/04 [facility] [place] 1[place] [facility] [place] 1[place] OUTPATIENT [id number] general check up, consult for referra NURIS Trivedi 04/29 Released w/o Limitations [facility] [place] 1) [facility] [place] 1) OUTPATIENT [id number] [facility] paperwo GIOVANNI Tapia 08/05 Released w/o Limitations [facility] [place] 1) [facility] [place] 1) OUTPATIENT [id number] anxiety MIKAELA DE OLIVEIRA 08/07 Released w/o Limitations [facility] [place] 1) [facility] [place] 1[place] TELE CONSULT [id number] Notes Entered by: MIKAELA DE OLIVEIRA 07 Aug 2017 1120 ------- ------- ------- ------- -- Medicat GIOVANNI Smalls 08/07 [facility] [place] 1) [facility] [place] 1[place] OUTPATIENT [id number] Notes Entered by: MIKAELA DE OLIVEIRA 08 Aug 2017 0741 ------- ------- ------- ------- -- Excepti onal Family Member Program MIKAELA DE OLIVEIRA 08/08 Released w/o Limitations [facility] [place] 1[place] [facility] [place] 1) OUTPATIENT [id number] Neck Pain and Dermato logy Referra LUPE Garcia 03/09 Released w/o Limitations [facility] [place]) [facility] [place] 1) OUTPATIENT [id number] 1 F/U ANA CHRISTIAN 03/16 Released w/o Limitations [facility] [place] 1) [facility] [place] 1) OUTPATIENT [id number] MIRENA REMOVAL NAOMI AMADOR 03/25 Released w/o Limitations [facility] [place]) [facility] [place] 3) OUTPATIENT [id number] 7 control /IUD ALDA RICHARDS 07/07 Released w/o Limitations [facility] [place] 3) Procedures Combined list of: 1) Procedures from Department of Veterans Affairs facilities going back up to thelast 18 months, not all VA non-surgical procedures are included; 2) All procedures from the Department of Defense facilities. Procedure Procedure Type Code Date Perfomer Comments Sourc e REMOVAL OF INTRAUTERINE DEVICE (IUD) [facility] BRIEF EMOTIONAL/BEHAVIO RAL ASSESSMENT (EG, DEPRESSION INVENTORY, ATTENTION-DEFICIT /HYPERACTIVITY DISORDER [ADHD] SCALE), WITH SCORING AND DOCUMENTATION, PER STANDARDIZED INSTRUMENT [facility] PREPARATION OF REPORT OF PATIENT'S PSYCHIATRIC STATUS, HISTORY, TREATMENT, OR PROGRESS (OTHER THAN FOR LEGAL OR CONSULTATIVE PURPOSES) FOR OTHER INDIVIDUALS, AGENCIES, OR INSURANCE CARRIERS [facility] HEALTH AND BEHAVIOR INTERVENTION, EACH 15 MINUTES, [id number]; INDIVIDUAL 018 [facility] TELE ASSESS & MGT SRV PROV QUAL NONPHYS HLTH CARE PRO TO EST PAT,PARENT,GUARD NOT ORIG REL ASSESS & MGT SRV PROV W/IN PREV 7 DAYS NOR LEAD ASSESS & MGT SRV/PX W/IN NXT 24 HR/SOON APT;5-10 MIN MED DIS [facility] PSYCHOTHERAPY, 30 MINUTES WITH PATIENT [facility] TELE ASSESS & MGT SRV PROV QUAL NONPHYS HLTH CARE PRO TO EST PAT,PARENT,GUARD NOT ORIG REL ASSESS & MGT SRV PROV W/IN PREV 7 DAYS NOR LEAD ASSESS & MGT SRV/PX W/IN NXT 24H/SOON APT; 11-20 MIN MED DIS 016 DoD TELE ASSESS & MGT SRV PROV QUAL NONPHYS HLTH CARE PRO TO EST PAT,PARENT,GUARD NOT ORIG REL ASSESS & MGT SRV PROV W/IN PREV 7 DAYS NOR LEAD ASSESS & MGT SRV/PX W/IN NXT 24 HR/SOON APT;5-10 MIN MED DIS 016 [facility] INFLUENZA VIRUS VACCINE, QUADRIVALENT, LIVE (LAIV4), FOR INTRANASAL USE DoD PSYCHOTHERAPY, 30 MINUTES WITH PATIENT DoD PSYCHOTHERAPY, 30 MINUTES WITH PATIENT DoD TELE ASSESS & MGT SRV PROV QUAL NONPHYS HLTH CARE PRO TO EST PAT,PARENT,GUARD NOT ORIG REL ASSESS & MGT SRV PROV W/IN PREV 7 DAYS NOR LEAD ASSESS & MGT SRV/PX W/IN NXT 24 HR/SOON APT;5-10 MIN MED DIS 015 DoD TELE ASSESS & MGT SRV PROV QUAL NONPHYS HLTH CARE PRO TO EST PAT,PARENT,GUARD NOT ORIG REL ASSESS & MGT SRV PROV W/IN PREV 7 DAYS NOR LEAD ASSESS & MGT SRV/PX W/IN NXT 24 HR/SOON APT;5-10 MIN MED DIS 015 DoD TELE ASSESS & MGT SRV PROV QUAL NONPHYS HLTH CARE PRO TO EST PAT,PARENT,GUARD NOT ORIG REL ASSESS & MGT SRV PROV W/IN PREV 7 DAYS NOR LEAD ASSESS & MGT SRV/PX W/IN NXT 24 HR/SOON APT;5-10 MIN MED DIS 015 DoD CARE VISIT () [facility] OTHER MANUALLY ASSISTED DELIVERY DoD POSTOPERATIVE FOLLOW-UP VISIT, NORMALLY INCLUDED IN THE SURGICAL PACKAGE, INDICATE THAT EVALUATION & MANAGEMENT SERVICE WAS PERFORMED DURING A POSTOPERATIVE PERIOD REASON RELATED ORIGINAL PROCEDURE DoD POSTOPERATIVE FOLLOW-UP VISIT, NORMALLY INCLUDED IN THE SURGICAL PACKAGE, INDICATE THAT EVALUATION & MANAGEMENT SERVICE WAS PERFORMED DURING A POSTOPERATIVE PERIOD REASON RELATED ORIGINAL PROCEDURE [facility] SUBSEQ CARE VISIT () [EXCLS:PATIENTS WHO ARE SEEN FOR A CONDITION UNREL TO /PRENATA L CARE (EG,AN UP RESPIR INFECT;PATIENTS SEEN FOR CONSULTATION ONLY,NOT FOR CONT CARE)] [facility] EDUCATION &TRAINING, PATIENT SELF-MGT QUALIFIED, NONPHYSICIAN HEALTH LAND ACQUISITION ANALYST USING STANDARDIZED CURRICULUM, [id number] W THE PATIENT (COULD INCL CAREGIVER/FAMILY) EA 30 MIN; 2-4 PATIENTS DoD EDUCATION &TRAINING, PATIENT SELF-MGT QUALIFIED, NONPHYSICIAN HEALTH LAND ACQUISITION ANALYST USING STANDARDIZED CURRICULUM, [id number] W THE PATIENT (COULD INCL CAREGIVER/FAMILY) EA 30 MIN; 5-8 PATIENTS DoD EDUCATION &TRAINING, PATIENT SELF-MGT QUALIFIED, NONPHYSICIAN HEALTH LAND ACQUISITION ANALYST USING STANDARDIZED CURRICULUM, [id number] W THE PATIENT (COULD INCL CAREGIVER/FAMILY) EA 30 MIN; 5-8 PATIENTS [facility] SUBSEQ CARE VISIT () [EXCLS:PATIENTS WHO ARE SEEN FOR A CONDITION UNREL TO /PRENATA L CARE (EG,AN UP RESPIR INFECT;PATIENTS SEEN FOR CONSULTATION ONLY,NOT FOR CONT CARE)] [facility] SUBSEQ CARE VISIT () [EXCLS:PATIENTS WHO ARE SEEN FOR A CONDITION UNREL TO /PRENATA L CARE (EG,AN UP RESPIR INFECT;PATIENTS SEEN FOR CONSULTATION ONLY,NOT FOR CONT CARE)] [facility] INFLUENZA VIRUS VACCINE, TRIVALENT (IIV3), SPLIT VIRUS, PRESERVATIVE FREE, 0.5 ML DOSAGE, FOR INTRAMUSCULAR USE [facility] SACROILIAC ORTHOSIS, FLEXIBLE, PROVIDES PELVIC-SACRAL SUPPORT, REDUCES MOTION ABOUT THE SACROILIAC JOINT, INCLUDES STRAPS, CLOSURES, MAY INCLUDE PENDULOUS ABDOMEN DESIGN, PREFABRICATED, [id number] [facility] SMEAR, PRIMARY SOURCE WITH INTERPRETATION; WET MOUNT FOR INFECTIOUS AGENTS (EG, SALINE, MELVA INK, AGATA PREPS) [facility] EDUCATION &TRAINING, PATIENT SELF-MGT QUALIFIED, NONPHYSICIAN HEALTH LAND ACQUISITION ANALYST USING STANDARDIZED CURRICULUM, [id number] W THE PATIENT (COULD INCL CAREGIVER/FAMILY) EA 30 MIN; 5-8 PATIENTS [facility] PHYS/OTH QUALIFIED HEALTH LAND ACQUISITION ANALYST QUALIFIED,EDUCATI ON,TRAIN,LICENSUR E/REGULATION (WHEN APPLICABLE) EDUC SER RENDERED TO PATS IN A GRP SETTING (EG,,OBES ITY,OR DIABETIC INSTRUCT) DoD ONLINE ASSESS &MANAG SERV PROVIDE,A QUAL NONPHYS HCP TO AN ESTABLISHED PAT/GUARDIAN,NOT ORIGINAT FRM RELAT ASSESS &MANAG SERV PROVIDE W/IN THE PREV 7 DAYS,USE THE [employer] NETWORK [facility] INITIAL CARE VISIT (REPORT AT 1ST ENCOUN W HEALTH LAND ACQUISITION ANALYST PROVIDING OBSTETRIC CARE. REPORT ALSO DATE OF VISIT &,IN A SEPARATE FIELD,THE DATE OF THE LAST MENSTRUAL PERIOD) [facility] TELE ASSESS & MGT SRV PROV QUAL NONPHYS HLTH CARE PRO TO EST PAT,PARENT,GUARD NOT ORIG REL ASSESS & MGT SRV PROV W/IN PREV 7 DAYS NOR LEAD ASSESS & MGT SRV/PX W/IN NXT 24 HR/SOON APT;5-10 MIN MED DIS [facility] EDUCATIONAL SUPPLIES, SUCH BOOKS, TAPES, AND PAMPHLETS, FOR THE PATIENT'S EDUCATION AT COST TO PHYSICIAN OR OTHER QUALIFIED HEALTH LAND ACQUISITION ANALYST [facility] ONLINE ASSESS &MANAG SERV PROVIDE,A QUAL NONPHYS HCP TO AN ESTABLISHED PAT/GUARDIAN,NOT ORIGINAT FRM RELAT ASSESS &MANAG SERV PROVIDE W/IN THE PREV 7 DAYS,USE THE [employer] NETWORK DoD TELE ASSESS & MGT SRV PROV QUAL NONPHYS HLTH CARE PRO TO EST PAT,PARENT,GUARD NOT ORIG REL ASSESS & MGT SRV PROV W/IN PREV 7 DAYS NOR LEAD ASSESS & MGT SRV/PX W/IN NXT 24H/SOON APT; 11-20 MIN MED DIS [facility] TELE ASSESS & MGT SRV PROV QUAL NONPHYS HLTH CARE PRO TO EST PAT,PARENT,GUARD NOT ORIG REL ASSESS & MGT SRV PROV W/IN PREV 7 DAYS NOR LEAD ASSESS & MGT SRV/PX W/IN NXT 24 HR/SOON APT;5-10 MIN MED DIS [facility] Health And Behavior Intervention, Each 15 Minutes Individual Health And Behavior Intervention, Each 15 Minutes Individual [id number] ANA CHRISTIAN [facility] Health And Behav A e mt Each 15 Min Initial A e ment Health And Behav Assessmt Each 15 Min Initial Assessment [id number] ANA CHRISTIAN [facility] Psychiatric Therapy Preparation of Psychiatric Status Report Psychiatric Therapy Preparation of Psychiatric Status Report [id number] MIKAELA DE OLIVEIRA [facility] Health And Behavior Intervention, Each 15 Minutes Individual Health And Behavior Intervention, Each 15 Minutes Individual [id number] MIKAELA DE OLIVEIRA [facility] Health And Behav A e mt Each 15 Min Initial A e ment Health And Behav Assessmt Each 15 Min Initial Assessment [id number] MIKAELA DE OLIVEIRA [facility] Non-Physician Phone Call To Patient/Provider Brief (5-10min) Non-Physician Phone Call To Patient/Provider Brief (5-10min) [id number] MANDIE VELARDE [facility] initiated phone call. spent 5 min on phone with pt. [facility] Psychiatric Therapy Individual Approximately 20-30 Minutes 016 MARTHA DENTON [facility] Non-Physician Phone Call To Pt/Provider Intermed (11-20 min) Non-Physician Phone Call To Pt/Provider Intermed (11-20 min) [id number] ELVIA MORTAAYA [facility] Non-Physician Phone Call To Patient/Provider Brief (5-10min) Non-Physician Phone Call To Patient/Provider Brief (5-10min) [id number] GELACIO MENJIVAR [facility] Psychiatric Therapy Individual Approximately 20-30 Minutes 015 MARTHA DENTON [facility] Psychiatric Therapy Individual Approximately 20-30 Minutes 015 MARTHA DENTON [facility] Non-Physician Phone Call To Patient/Provider Brief (5-10min) Non-Physician Phone Call To Patient/Provider Brief (5-10min) [id number] HUSSEIN KEE [facility] Non-Physician Phone Call To Patient/Provider Brief (5-10min) Non-Physician Phone Call To Patient/Provider Brief (5-10min) [id number] HESHAM BALDERAS [facility] Non-Physician Phone Call To Patient/Provider Brief (5-10min) Non-Physician Phone Call To Patient/Provider Brief (5-10min) [id number] BROOKE FLEMING [facility] Obstetrical Services Care Visit Obstetrical Services Care Visit [id number] SPEERS, DOROTA R DoD OB Services Antepartum Care Only Subsequent Single Visit OB Services Antepartum Care Only Subsequent Single Visit [id number] DOROTA DANIEL R [facility] Patient Counseling Medical Management Two To Four Patients Patient Counseling Medical Management Two To Four Patients [id number] MARÍA DOROTA R DoD OB Services Antepartum Care Only Subsequent Single Visit OB Services Antepartum Care Only Subsequent Single Visit [id number] DOROTA DANIEL R DoD Patient Counseling Medical Management Two To Four Patients Patient Counseling Medical Management Two To Four Patients [id number] DOROTA DANIEL R DoD OB Services Antepartum Care Only Subsequent Single Visit OB Services Antepartum Care Only Subsequent Single Visit [id number] DOROTA DANIEL R [facility] Patient Counseling Medical Management Five To Eight Patients Patient Counseling Medical Management Five To Eight Patients [id number] DOROTA DANIEL R DoD OB Services Antepartum Care Only Subsequent Single Visit OB Services Antepartum Care Only Subsequent Single Visit [id number] DOROTA DANIEL [facility] Patient Counseling Medical Management Five To Eight Patients Patient Counseling Medical Management Five To Eight Patients [id number] DOROTA DANIEL R DoD OB Services Antepartum Care Only Subsequent Single Visit OB Services Antepartum Care Only Subsequent Single Visit [id number] DOROTA DANIEL [facility] OB Services Antepartum Care Only Subsequent Single Visit OB Services Antepartum Care Only Subsequent Single Visit [id number] DOROTA DANIEL [facility] Tdap Vaccine Tdap Vaccine [id number] DOROTA DANIEL [facility] Immunization Administration One Vaccine Immunization Administration One Vaccine [id number] DOROTA DANIEL [facility] OB Services Antepartum Care Only Subsequent Single Visit OB Services Antepartum Care Only Subsequent Single Visit [id number] DOROTA DANIEL [facility] Influenza Split Virus Vacc Age 3+ Years IM Preservative Free DOROTA DANIEL DoD Immunization Administration One Vaccine Immunization Administration One Vaccine [id number] DOROTA DANIEL [facility] Patient Counseling Medical Management Five To Eight Patients Patient Counseling Medical Management Five To Eight Patients [id number] DOROTA DANIEL [facility] OB Services Antepartum Care Only Subsequent Single Visit OB Services Antepartum Care Only Subsequent Single Visit [id number] DOROTA DANIEL [facility] Sacroiliac orthosis, flexible, provides pelvic-sacral support, reduces motion about the sacroiliac joint, includes straps, closures, may include pendulous abdomen design, prefabricated, [id number] DOROTA DANIEL [facility] Patient Counseling Medical Management Five To Eight Patients Patient Counseling Medical Management Five To Eight Patients [id number] DOROTA DANIEL [facility] Vaginal AGATA Prep Vaginal AGATA Prep [id number] [facility] Vaginal Wet [place] Vaginal [place] [address] [facility] OB Services Antepartum Care Only Subsequent Single Visit OB Services Antepartum Care Only Subsequent Single Visit 0502F DOROTA DANIEL [facility] Patient Counseling Medical Management Five To Eight Patients Patient Counseling Medical Management Five To Eight Patients [id number] DOROTA DANIEL [facility] DrKina-Supervised Group Educational Services DrKina-Supervised Group Educational Services [id number] JACQUELYN HERNANDEZ [facility] Internet Med Svc Qual Nonphys Healthcare Prof Estab Patient Internet Med Svc Qual Nonphys Healthcare Prof Estab Patient [id number] YESENIA GIBBS [facility] OB Services Antepartum Care Only First Visit, With Report OB Services Antepartum Care Only First Visit, With Report [id number] JAVI WOOD [facility] Non-Physician Phone Call To Patient/Provider Brief (5-10min) Non-Physician Phone Call To Patient/Provider Brief (5-10min) [id number] NOLAN LACKEY 18 yr old pt, 8 wks gestation, contacted triage nurse, name and verified. Pt is requesting refill on zofran. She states that at first it was working well but has noticed that for past 3 days her n/v has been worse, vomiting 4-5 times yesterday. She would like to know if there is a different medication that would work better. Informed pt that when refill is available she would be notified. Please evaluate. Thank you. SATHYA pt contact number is [phone] [facility] -Supervised Services Provision Of Educational Supplies -Supervised Services Provision Of Educational Supplies [id number] TRAVISCAROL CELESTE [facility] Patient Counseling Medical Management Individual Patient Patient Counseling Medical Management Individual Patient [id number] TRAVISCAROL CELESTE [facility] Internet Med Svc Qual Nonphys Healthcare Prof Estab Patient Internet Med Svc Qual Nonphys Healthcare Prof Estab Patient [id number] YESENIA GIBBS [facility] Non-Physician Phone Call To Pt/Provider Intermed (11-20 min) Non-Physician Phone Call To Pt/Provider Intermed (11-20 min) [id number] RUBEN HERRERA [facility] Non-Physician Phone Call To Patient/Provider Brief (5-10min) Non-Physician Phone Call To Patient/Provider Brief (5-10min) [id number] JOE WINTERS [facility] No data available for this section Ambulato ry Pharmacy Social History Combined list of available smoking, tobacco, and other social history from Department of Defense and Veterans Affairs facilities. Social History Type Response Date Comment Sour e This section is an empty social history section. DoD Assessment and Plan Combined list of future care activities from Department of Defense and Veterans Affairs facilities (e.g., assessment and plan notes, appointments, orders, and referrals). Additional future care activities may be listed in the Plan of Care section. Result Assessment and Plan Date Source Assessment and Plan No data available for this section 08/17/2024 Ambulatory Pharmacy Functional Status Combined list of recent functional and cognitive assessments recorded at Department of Defense and Veterans Affairs (VA).VA Functional [place] Measurement (FIM) Scale: 1 = Total Assistance (Subject = 0% +), 2 = Maximal Assistance (Subject = 25% +), 3 = Moderate Assistance (Subject = 50% +), 4 = Minimal Assistance (Subject = 75% +), 5 = Supervision, 6 = Modified [place] (Device), 7 = Complete [place] (Timely, Safely). Assessment Date/Time Source Assessment Type Assessment Skill Assessment Score Assessment Details No data available for this section
--- OUTSIDE RECORDS SUMMARY | 2024-08-17 11:58 | XMS_ITS | Clinical Summary ---
Author Organization [facility] D Address [address] [place] [address] Care Team Providers Care Reformatory Attendant Name Role Phone Parag Pedraza MD PhD Unavailable [phone] Eric Simmons DO Primary Care Provider [phone] Chirag Epstein MD Unavailable [phone] Allergies No known active allergies Medications SUMAtriptan (IMITREX) 100 mg tabletIndicatio ns:Migraine Take 1 tablet (100 mg total) by mouth once as needed for migraine Active valACYclovir (VALTREX) 500 mg tablet Take 1 tablet (500 mg total) by mouth 2 (two) times a day as needed Active hydrOXYzine (ATARAX) 25 mg tablet Take 1 tablet (25 mg total) by mouth daily as needed 2 Active metoprolol XL (TOPROL-XL) 50 mg extended release tablet Take 1 tablet (50 mg total) by mouth daily 2 Active warfarin (COUMADIN) 10 mg tablet Take 2 tablets (20 mg total) by mouth daily Take with 3 mg dose for total [address] Gonzalez 2 Active warfarin (COUMADIN) 1 mg tablet 3 tablets (3 mg total) Take with 20 mg dose for total [address] Gonzalez 2 Active aspirin (Adult Low Dose Aspirin) 81 mg enteric coated tablet Take 1 tablet (81 mg total) by mouth daily 2 Active white petrolatum (bulk)-dilTIAZe m (bulk) Apply 2 g topically daily Active spironolactone (ALDACTONE) 25 mg tablet Take 1 tablet (25 mg total) by mouth daily 5 Active tretinoin (RETIN-A) 0.025 % cream APPLY TOPICALLY TO THE AFFECTED AREA EVERY DAY AT BEDTIME 5 Active Active Problems Patient Care Coordination No te Formatting of this note migh t be different from the original. Please add PCP Brian Villalta [phone], [place] [address] to Ms. 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 S/P ablation of atrial flutter 12/28/2021 S/P catheter ablation of slow pathway 12/28/2021 Hx of Ross procedure 12/28/2021 Palpitations 12/28/2021 Chronic anticoagulation 11/13/2021 Aftercare following surgery 04/08/2019 Aortic prosthetic valve regurgitation 02/26/2019 Overview (02/26/2019): Added automatically from request for surgery [id number] Patient encounter status 08/03/2015 Overview (06/06/2016): Surgery follow-up Disorder of aorta 04/03/2015 Overview (06/06/2016): Aortic stenosis Aortic valve insufficiency 03/21/2015 Overview (06/06/2016): Severe aortic regurgitation Congenital stenosis of aortic valve 01/31/2015 Overview (06/06/2016): Congenital aortic stenosis Ascending aorta dilatation 01/31/2015 Overview (06/06/2016): Ascending aorta dilatation Dyspnea on exertion 01/31/2015 Overview (06/06/2016): Dyspnea on exertion Chest pain 01/31/2015 Overview (06/06/2016): Chest pain, unspecified chest pain type Dilatation of aorta 11/18/2012 Aortic valve stenosis 04/10/2009 Aortic valve regurgitation 06/06/2008 Encounters Date Type Department Care Team Description 08/09/2024 2:30 PM CDT Office Visit [facility] Floor [address] [place] [address] Chirag Epstein MD Anal fissure; Hemorrhoids, unspecified hemorrhoid type 08/04/2024 Telephone [facility] Surgery [facility] [address] [place] [address] Michelle Trujillo BS Reschedule (Sooner visit options ) from Last 3 Months Immunizations Immunization Administration Dates Next Due Influenza, Quadrivalent, Spl it, Preservative Free, Intramuscular 03/09/2019 Surgical History Surgery Date Site/Laterality Comments OTHER SURGICAL HISTORY balloon valvuloplasty at [age] year of age AORTIC VALVE REPLACEMENT 06/20/2015 Modified Ross procedure and replacementof ascending aorta HERNIA REPAIR Hernia repair x 2 WISDOM TOOTH EXTRACTION CARDIAC ELECTROPHYSIOLOGY STUDY AND ABLATION 03/03/2020 - 03/02/2021 CARDIAC VALVE REPLACEMENT Medical History Medical History Date Comments Aortic valve stenosis Aortic jey nosis; Comments: JBP 01/31/2015 - Hx Other Medical aortic stenosis ; Comments: QUINTERO 04/03/2015 - Aortic stenosis congenital bicus pid aortic valve Presence of prosthetic heart valve Atrial flutter (HCC) SVT (supraventricular tachycardia) Anxiety GERD (gastroesophageal reflux disease) Family History Medical History Relation Name Comments Pulmonary embolism Father Mental illness Mother mother Relation Name Status Comments Father Alive Mother mother Social History Tobacco Use Types Packs/Day Years Used Date Smoking Tobacco: Passive Smo ke Exposure - Never Smoker Cigarettes Vaping Passive Smoke Exposure: Yes Smokeless Tobacco: Never Tobacco Cessation:Counseling Given: Not Answered Alcohol Use Standard Drinks/Week Comments Yes 0 (1 standard drink = 0.6 oz pur e alcohol) socially Comments No Sex and Gender Information Value Date Recorded Sex Assigned at Not on file Legal Sex Female 3:54 AM DIRECTOR MOBILE Gender Identity Not on file Sexual Orientation Not on file Obstetrics History Last Filed Vital Signs Vital Sign Reading Time Taken Comments Blood Pressure 136/83 08/09/2024 2:22 PM CDT Pulse 72 08/09/2024 2:22 PM CDT Temperature 36.4 C (97.5 F) 08/09/2024 2:22 PM CDT Respiratory Rate 14 08/09/2024 2:22 PM CDT Oxygen Saturation 100% 08/09/2024 2:22 PM CDT Inhaled Oxygen Concentration - - Weight 63.5 kg (140 lb) 08/09/2024 2:22 PM CDT Height 152.4 cm (5') 08/09/2024 2:22 PM CDT Body Mass Index 27.34 08/09/2024 2:22 PM CDT Plan of Treatment Health Maintenance Due Date Last Done Comments Cervical Cancer Screening 1993 Depression Screening 1993 Hepatitis C Screening 1993 DTaP/Tdap/Td Vaccine (1 - Tdap) 2004 Varicella Vaccines (1 of 2 - 13+ 2-dose series) 2006 Hepatitis B Screening 08/28/2011 Regular Well Visit/Exam 18-64 08/28/2011 Influenza Vaccine (Season Ended) 2024 03/09/19 20 HPV Vaccines Aged Out No longer eligi ble based on patient's age to complete this topic Pneumococcal vaccine <65 Aged Out No longer eligible based on patient's age to complete this topic Medical Devices Implanted Type Area Hadoop Software Engineer Device Identifier Shelf Expiration Date Model / Serial / Lot On-X Intrnl Onxane-21 On-X 21mm 30mm 19.4mm 14.7mm 11.9mm Sewing Ring Heart 22.2mm - [id number] - [id number] Implanted:Qty: 1 on 03/05/2019 by Landon Montiel MD at [facility] N/A: Aortic Valve On-X Intrnl 08/20/2024 ONXANE-21 / [id number] / Insurance [facility] CLAIMS CIGNA CIGNA Advance Directives For more information, please contact: [phone] * Full Code (Latest Code Status on File) Date Activated Date Inactivated Comments 03/10/2019 3:08 PM 03/11/2019 4:36 AM * Full Code Date Activated Date Inactivated Comments 03/05/2019 12:53 PM 03/09/2019 5:07 PM Care Teams Reformatory Attendant Relationship Specialty Start Date End Date Eric Simmons DO [address] [place] [address] PCP - General Internal Medicine 12/28/21 Parag Pedraza MD PhD [address] [place] [address] Medical Oncologist/Business Quality Assurance Analyst Hematology and Oncology 10/26/21 Chirag Epstein MD [phone] [place] [address] Surgeon Colon and Rectal Surgery 08/05/24
--- OUTSIDE RECORDS SUMMARY | 2024-08-17 11:58 | XMS_ITS | Referral Summary ---
Author Organization [facility] D Address [address] [place] [address] Care Team Providers Care Spinning Doffer Name Role Phone Parag Pedraza MD PhD Unavailable Eric Simmons DO Primary Care Provider [phone] Chirag Epstein MD Unavailable Encounters Date Type Department Care Team Description 08/09/2024 2:30 PM CDT Office Visit [facility] Surgery [address] [place] [address] [address] [place] [address] Chirag Epstein MD Anal fissure; Hemorrhoids, unspecified hemorrhoid type 08/04/2024 Telephone [facility] Surgery [address] [place] [address] [address] [place] [address] Michelle Trujillo BS Reschedule (Sooner visit options ) from Last 3 Months Allergies No known active allergies Medications SUMAtriptan [...] the original. Please add PCP Brian Villalta [phone], [place] [address] to Ms. 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 S/P ablation of atrial flutter 12/28/2021 S/P catheter ablation of slow pathway 12/28/2021 Hx of Ross procedure 12/28/2021 Palpitations 12/28/2021 Chronic anticoagulation 11/13/2021 Aftercare following surgery 04/08/2019 Aortic prosthetic valve regurgitation 02/26/2019 Overview (02/26/2019): Added automatically from request for surgery [id number] Patient encounter status 08/03/2015 Overview (06/06/2016): Surgery [...] valve stenosis 04/10/2009 Aortic valve regurgitation 06/06/2008 Immunizations Immunization Administration Dates Next Due Influenza, Quadrivalent, Spl it, Preservative Free, Intramuscular 03/09/2019 Social History Tobacco Use Types Packs/Day Years [...] on file Legal 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 Gender Identity Not on file Sexual Orientation [...] 08/09/2024 2:22 PM CDT Plan of Treatment Not on file Medical Devices Implanted Type Area Manager Msw Device Identifier Shelf Expiration Date Model / Serial / Lot On-X Intrnl Onxane-21 On-X 21mm 30mm 19.4mm 14.7mm 11.9mm Sewing Ring Heart 22.2mm - [id number] - [id number] Implanted:Qty: 1 on 03/05/2019 by Landon Montiel MD at [facility] N/A: Aortic Valve On-X Intrnl 08/20/2024 ONXANE-21 / [id number] / Insurance [facility] Advance Directives For more information, please contact: [phone] * Full Code (Latest Code Status on File) Date Activated Date Inactivated Comments 03/10/2019 3:08 PM 03/11/2019 4:36 AM * Full Code Date Activated Date Inactivated Comments 03/05/2019 12:53 PM 03/09/2019 5:07 PM Care Teams Spinning Doffer Relationship Specialty Start Date End Date Eric Simmons DO [address] [place] [address] PCP - General Internal Medicine 12/28/21 Parag Pedraza MD PhD [address] [place] [address] Medical Oncologist/Bituminous Distributor Operator Hematology and Oncology 10/26/21 Chirag Epstein MD [phone] [place] [address] Surgeon Colon and Rectal Surgery 08/05/24
[2024-08-17 13:12] LABS: INR 1.2; Prothrombin Time 15.3 Seconds (11.1-14.7)
== END 2024-08-17 10:51 | disposition home or self-care (01) ==
LOC: ANHLAB 10:51
PROVIDERS: PCP Internal Medicine; Visit Provider Internal Medicine Hematology & Oncology
DX: D68.9 Coagulation defect, unspecified (principal)
CPT/HCPCS: 36415; 85610

== ENCOUNTER 2024-11-15 13:49 | Outpatient (CLI) | payer OTHER, SELFPAY ==
--- NOTE | 2024-11-15 13:58 | ECG_ITS ---
Test Date: 2024-11-15 14:14:06 Measurements Intervals [place] Rate: 77 P: 72 NC: 205 QRS: 34 QRSD: 110 T: 70 QT: 395 QTc: 448 Interpretive Statements SINUS RHYTHM LEFT ATRIAL ENLARGEMENT [-0.15mV P-WAVE IN V1/V2] MODERATE T-WAVE ABNORMALITY, CONSIDER INFERIOR ISCHEMIA [-0.1+ mV T-WAVE IN II/aVF] ABNORMAL ECG No previous ECG available for comparison Electronically Signed On 11-16-2024 07:58:25 CDT by Enoch Torres M.D.
== END 2024-11-15 13:50 | disposition home or self-care (01) ==
LOC: ANHLAB 13:50
PROVIDERS: PCP Internal Medicine; Visit Provider Anesthesiology
DX: I47.10 Supraventricular tachycardia, unspecified (principal); Z95.2 Presence of prosthetic heart valve; R94.31 Abnormal electrocardiogram [ECG] [EKG]
CPT/HCPCS: 93005

== ENCOUNTER 2024-11-17 12:59 | Outpatient (CLI) | payer OTHER, SELFPAY ==
--- OUTSIDE RECORDS SUMMARY | 2024-11-17 13:07 | XMS_ITS | Encounter Summary ---
Author Organization [facility] Address [id number] [place] [address] Care Team Providers Care Sign Letterer Name Role Phone Eric Simmons Primary Care Provider Encounter Details Date Type Department Care Team ([facility] Contact Info) Description 11/15/2024 Orders Only [facility] Oncology and Hematology [address] [place] [address] Hermes Hernández MD [facility] [employer] [address] [place] [address] Clotting disorder Social History Tobacco Use Types Packs/Day Years [...] on file documented as of this encounter Plan of Treatment Upcoming Encounters Date Type Department Care Team (Late Contact Info) Description 12/08/2024 1:15 PM CDT Office Visit [facility] Oncology and Hematology [address] [place] [address] Hermes Hernández MD [facility] [employer] [address] [place] [address] documented as of this encounter Visit Diagnoses Diagnosis Clotting disorder Other and unspecified coagulation defects documented in this encounter Care Teams Sign Letterer Relationship Specialty Start Date End Date Eric Simmons DO [address] [facility] [address] [place] [address] PCP - General 08/20/22 documented as of this encounter
--- OUTSIDE RECORDS SUMMARY | 2024-11-17 13:07 | XMS_ITS | Clinical Summary ---
Author Organization [facility] D Address [address] [place] [address] Care Team Providers Care Rack Pusher Name Role Phone Parag Pedraza MD PhD Unavailable [phone] Eric Simmons DO Primary Care Provider [phone] Chirag Epstein MD Unavailable [phone] Allergies No known active allergies Medications SUMAtriptan [...] the original. Please add PCP Brian Villalta [phone], [place] [address] to Ms. 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 S/P ablation of atrial flutter 12/28/2021 S/P catheter ablation of slow pathway 12/28/2021 Hx of Ross procedure 12/28/2021 Palpitations 12/28/2021 Chronic anticoagulation 11/13/2021 Aftercare following surgery 04/08/2019 Aortic prosthetic valve regurgitation 02/26/2019 Overview (02/26/2019): Added automatically from request for surgery [id number] Patient encounter status 08/03/2015 Overview (06/06/2016): Surgery [...] Encounters Date Type Department Care Team Description 10/18/2024 Telephone [facility] Medicine Surgery [address] [facility] [address] [place] [address] Tawana Gallardo RN from Last 3 Months Immunizations Immunization Administration [...] Hx Other Medical aortic stenosis ; Comments: QUINTREO 04/03/2015 - Aortic stenosis congenital bicus pid [...] on file 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 Gender Identity Not on file Sexual Orientation [...] Screening 08/28/2011 Regular Well Visit/Exam 18-64 08/28/2011 HPV Vaccines (1 - 3-dose SCD M series) 2020 Influenza Vaccine (#1) 2024 03/09/2019 Pneumococcal vaccine <65 Aged Out No longer eligible based on patient's age to complete this topic Medical Devices Implanted Type Area Disability Coordinator Device Identifier Shelf Expiration Date Model / Serial / Lot On-X Intrnl Onxane-21 On-X 21mm 30mm 19.4mm 14.7mm 11.9mm Sewing Ring Heart 22.2mm - [id number] - [id number] Implanted:Qty: 1 on 03/05/2019 by Landon Montiel MD at [facility] N/A: Aortic Valve On-X Intrnl 08/20/2024 ONXANE-21 / [id number] / Insurance [employer] [place] CLAIMS CIGNA CIG Advance Directives For more information, please contact: [phone] * Full Code (Latest Code Status on File) Date Activated Date Inactivated Comments 03/10/2019 3:08 PM 03/11/2019 4:36 AM * Full Code Date Activated Date Inactivated Comments 03/05/2019 12:53 PM 03/09/2019 5:07 PM Care Teams Rack Pusher Relationship Specialty Start Date End Date Eric Simmons [address] [place] [address] PCP - General Internal Medicine 12/28/21 Parag Pedarza MD PhD [address] [place] [address] Medical Oncologist/Secondary School Principal Hematology and Oncology 10/26/21 Chirag Epstein MD [phone] [place] [address] Surgeon Colon and Rectal Surgery 08/05/24
--- OUTSIDE RECORDS SUMMARY | 2024-11-17 13:07 | XMS_ITS | Encounter Summary ---
Author Organization [facility] Address [address] [place] [address] Care Team Providers Care Board Layer Name Role Phone Eric Simmons DO Primary Care Provider Encounter Details Date Type Department Care Team (Late st Contact Info) Description 11/16/2024 External Device Data STL ABSTRACTION Provider, Abstract NO ADDRESS ON FILE Social History Tobacco Use Types Packs/Day Years [...] Care Team (Late st Contact Info) Description 12/08/2024 1:15 PM CDT Office Visit [facility] Oncology and Hematology - Alexis [address] [facility] [address] [place] [address] Hermes Hernández MD [address] [facility] [address] [place] [address] documented as of this encounter Visit Diagnoses Not on filedocumented in this encounter Care Teams Board Layer Relationship Specialty Start Date End Date Eric Simmons DO [address] [facility] [address] [place] [address] PCP - General 08/20/22 documented as of this encounter
--- OUTSIDE RECORDS SUMMARY | 2024-11-17 13:07 | XMS_ITS | Encounter Summary ---
Author Organization [facility] Healthcare Address [address] [place] [address] Care Team Providers Care Special Education Professor Name Role Phone Parag Pedraza MD PhD Unavailable [phone] Eric Simmons DO Primary Care Provider [phone] Chirag Epstein MD Unavailable [phone] Encounter Details Date Type Department Care Team (Late st Contact Info) Description 03/29/2024 Orders Only [facility] Health Information Management [address] [place] [address] Scanning, Provider Social History Tobacco Use Types Packs/Day Years Used Date Smoking Tobacco: Passive Smo ke Exposure - Never Smoker Vaping Smokeless Tobacco: Never Alcohol Use Standard Drinks/Week Comments Yes 0 (1 standard drink = 0.6 oz pur e alcohol) socially Comments No Sex and Gender Information Value Date Recorded Sex Assigned at Not on file 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 Gender Identity Not on file Sexual Orientation Not on file documented as of this encounter Plan of Treatment Not on file documented as of this encounter Procedures Procedure Name Priority Date/Time Associated Diagnosis Comments SCAN - LABS 03/29/2024 documented in this encounter Results * SCAN - LABS (03/29/2024) us Provider Scanning Final Result documented in this encounter Visit Diagnoses Not on filedocumented in this encounter Care Teams Special Education Professor Relationship Specialty Start Date End Date Eric Simmons DO [address] [place] [address] PCP - General Internal Medicine 12/28/21 Parag Pedraza MD PhD [address] [place] [address] Medical Oncologist/Engineering Agent Hematology and Oncology 10/26/21 Chirag Epstein MD [phone] [place] [address] Surgeon Colon and Rectal Surgery 08/05/24 documented as of this encounter
--- OUTSIDE RECORDS SUMMARY | 2024-11-17 13:07 | XMS_ITS | Clinical Summary ---
Author Organization [facility] on Address [address] [place] [address] Care Team Providers Care Talent Development Director Name Role Phone NurisdanyEric duke Primary Care Provider Allergies No known active allergies Medications metoprolol succinate ER 50 mg tablet,extended release 24 hr Take 50 mg by mouth daily. 10/23/2021 Active spironolactone (ALDACTONE) 25 mg tablet Take 25 mg by mouth daily. Active warfarin (COUMADIN) 10 mg tablet Take 2 Tablets (20 mg) by mouth daily. 60 Tablet 4 08/24/2024 Active Active Problems No known active problems Encounters Date Type Department Care Team Description 11/16/2024 External Device Data STL ABSTRACTION Provider, Abstract 11/15/2024 Orders Only [facility] Oncology and Hematology - Alexis Jessica [address] [place] [address] Hermes Hernández MD Clotting disorder 11/01/2024 Orders Only [facility] Oncology and Hematology - [place] Jessica Augustin [address] [place] [address] eHrmes Hernández MD Clotting disorder 10/18/2024 Orders Only [facility] Oncology and Hematology - Alexis Jessica [address] [place] [address] Hermes Hernández MD Clotting disorder 10/06/2024 External Device Data STL ABSTRACTION Provider, Abstract 10/04/2024 Orders Only [facility] Oncology and Hematology - Alexis Jessica [address]in [address] [place] [address] Hermes Hernández MD Clotting disorder 09/20/2024 Orders Only [facility] Oncology and Hematology - Alexis [address] [place] [address] Hermes Hernández MD Clotting disorder 09/15/2024 External Device Data STL ABSTRACTION Provider, Abstract 09/14/2024 External Device Data STL ABSTRACTION Provider, Abstract 09/06/2024 Orders Only [facility] Oncology and Hematology - Alexis [address] [place] [address] Hermes Hernández MD Clotting disorder 08/31/2024 External Device Data STL ABSTRACTION Provider, Abstract 08/24/2024 4:30 PM CDT Telephone Check Up [facility] Oncology and Hematology - Alexis [address] [place] [address] Hermes Hernández MD Clotting disorder (Primary Dx) 08/24/2024 External Device Data STL ABSTRACTION Provider, Abstract 08/24/2024 External Device Data STL ABSTRACTION Provider, Abstract 08/23/2024 Orders Only [facility] Oncology and Hematology - Alexis [address] [place] [address] Hermes Hernández MD 08/17/2024 10:30 AM CDT Office Visit [facility] Oncology and Hematology - Alexis [address] [place] [address] Hermes Hernández MD Clotting disorder (Primary Dx) [...] Description 12/08/2024 1:15 PM CDT Office Visit [facility] Oncology and Hematology - [place] [address] [place] [address] [facility] [address] [place] [address] Hermes Hernández MD [address] [facility] [address] [place] [address] Health Maintenance Due Date Last Done Comments HEPATITIS B VACCINES (1 of 3 - 19+ 3-dose series) 2012 HPV/Cotest (21-29) 2014 HPV VACCINES (1 - 3-dose SCD M series) 2020 CERVICAL CANCER SCREENING 08/28/2023 HPV/Cotest (30-65) 08/28/2023 PAP SMEAR 08/28/2023 DTAP/TDAP/TD VACCINES (2 - T d or Tdap) 01/22/2024 01/21/2014 INFLUENZA VACCINE (#1) 2024 0, 12/22/2017, 01/03/2015, Additional history exists Procedures Procedure Name Priority Date/Time Associated Diagnosis Comments PROTIME-INR Routine 08/17/2024 4:24 PM CDT from Last 3 Months Results * PROTIME-INR (08/17/2024 4:24 PM CDT) Blood Hermes Hernández MD HEMATOLOGY ORDERABLES Final Res ult from Last [address] [place] [address] [place] [address] Member Subscriber Plan / Payer (Ef fective 2022-Present) Name:Kayla Jose Relation to Subscriber:Self Name:Kayla Jose Payer ID:Not on file Group ID:Not on file Type:Government Insurance Address: [facility] [address] [id number] [facility] [employer] [facility] OA PLUS Care Teams Talent Development Director Relationship Specialty Start Date End Date Eric Simmons DO [address] [facility] [address] [place] [address] PCP - General 08/20/22
[2024-11-17 14:20] LABS: INR 2.0; Prothrombin Time 22.2 Seconds (11.1-14.7)
== END 2024-11-17 13:00 | disposition home or self-care (01) ==
LOC: ANHLAB 13:00
PROVIDERS: PCP Internal Medicine; Visit Provider Surgery
DX: K64.8 Other hemorrhoids (principal)
CPT/HCPCS: 36415; 85610

== ENCOUNTER 2024-12-01 00:40 | Day surgery (SDC) | payer OTHER, SELFPAY ==
[2024-11-12 14:46] VITALS: BMI 21.6
--- NOTE | 2024-11-12 14:59 | PC.NURSE ---
Addendum entered by Lacho Servin RN 11/23/24 10:28: Patient says no changes to health information since prior interview. Says she will be holding Coumadin 5 days prior to surgery. Reminded of need for urine specimen day of surgery and discussed parking situation due to construction. Voices understanding. Informed to be here at 1200 noon on 12-01-2024 for surgery at 2pm. Original Note: Report to the Outpatient Waiting Room, entrance under the green pavilion located off [facility], at time _1000_ on date _[id number]_. Planned Procedure Time: _1200_.? Time changes happen often and if your time is changed the preop area will call you the afternoon before. - You and your visitor will be asked to self-screen and do not enter if you have any COVID symptoms. Please call surgeon if you need to reschedule. - A mask is optional within the hospital at this time. Patients may have clear liquids (water, carbonated beverages, clear teas, apple juice) until 3 hours prior to surgery with a maximum of 20 ounces. - No food from midnight until time of surgery and no smoking, or chewing tobacco (or any form of nicotine). No chewing gum, candy or mints. Take only the following medications with a SIP of water on the morning of surgery: __Metoprolol and Norethindrone___ DO NOT STOP ANY OF YOUR OTHER PRESCRIPTION MEDICATIONS PRIOR TO SURGERY EXCEPT THE FOLLOWING Hold all vitamins and supplements for 3 days per anesthesiologist. Medications to discontinue per physician ___Warfarin patient mentioned 5 day hold but is double checking with ____ Date to take last dose Please no make-up, nail serbian, hairspray, perfume, deodorant, or body powder the day of surgery.? No jewelry (including any body piercings) or valuables the day of surgery, leave them at home.? Please take a shower or bath the night before, or the morning of, surgery with an antibacterial soap.? Wear comfortable, loose fitting clothing.? - Jewelry must be removed prior to entering the operating room.? Rings and piercings that are not removed may be cut off. - The hospital will not accept responsibility for valuables.? - Please leave all valuables, including medications, at home the day of surgery. If you are going home after surgery, a licensed freight delivery driver must drive you home.? - NO public transportation without another adult if you receive anesthesia. - We recommend that an adult stay with you for 24 hours following discharge. - We also recommend that you do not drive, make important decision, drink alcoholic beverages, or take any drugs that were not prescribed by your health care provider for at least 24 hours after your discharge time. Follow any additional instructions given to you from your surgeon. Telephone instructions given to __Kayla___and asked if any additional questions and then verbalized understanding. Patient advised to call surgeon office or pre surgery nurse liaison [phone] if any additional questions.
--- OUTSIDE RECORDS SUMMARY | 2024-11-22 00:11 | XMS_ITS | Patient Health Record ---
Author Organization [facility] Address [address] [facility] [address] [place] [address] Care Team Providers Care Gag Writer Name Role Phone Bobby Winn Unavailable [phone] Reason For Referral No Information Medications Medication SIG (Take, Route, Frequency, Duration) Notes Start Date End Date Status Hyoscyamine Sulfate 0.125 MG Tablet Oral Active SUMAtriptan Succinate 100 MG Tablet Oral Active Tretinoin 0.025 % Cream External Active hydrOXYzine HCl 25 MG Tablet Oral Active FLUoxetine HCl 20 MG Capsule Oral Active Enoxaparin Sodium 60 MG/0.6ML Solution Subcutaneous Active Hydrocortisone 2.50% Cream External Active Verapamil HCl ER 120 MG Tablet Extended Release Oral Acti ve Ibuprofen 600 MG Tablet Oral Active Sertraline HCl 50 MG Tablet Oral Active Warfarin Sodium 10 MG Tablet Oral Active Warfarin Sodium 3 MG Tablet Oral Active Topiramate 50 MG Tablet Oral Active Amoxicillin 500 MG Capsule Oral Active Metoprolol Succinate ER 50 MG Tablet Extended Release 24 Hour Oral Active metroNIDAZOLE 500 MG Tablet Oral Active oxyCODONE-Acetaminophen 5-325 MG Tablet Oral Active Nitrofurantoin Monohyd Macro 100 MG Capsule Oral Active FLUoxetine HCl 10 MG Capsule Oral Active Plan Of Treatment No Information Insurance Providers Payer Name Payer Address Payer Phone Subscriber Number Group Number Insured Name Patient Relationship to Insured Coverage Start Date Coverage End Date [facility] [address] [place] [address] [id number] RODRIGO RUTH Spouse - patient is the spouse of the insured
--- OUTSIDE RECORDS SUMMARY | 2024-11-22 00:11 | XMS_ITS | Clinical Summary ---
Author Organization [facility] D Address [address] [place] [address] Care Team Providers Care Mathematician Research Name Role Phone Parag Pedraza MD PhD Unavailable [phone] Eric Simmons DO Primary Care Provider [phone] Chirag Epstein MD Unavailable [phone] Allergies No known active allergies Medications SUMAtriptan [...] the original. Please add PCP Brian Villalta [phone], [place] [address] to Ms. 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 S/P ablation of atrial flutter 12/28/2021 S/P catheter ablation of slow pathway 12/28/2021 Hx of Ross procedure 12/28/2021 Palpitations 12/28/2021 Chronic anticoagulation 11/13/2021 Aftercare following surgery 04/08/2019 Aortic prosthetic valve regurgitation 02/26/2019 Overview (02/26/2019): Added automatically from request for surgery [id number] Patient encounter status 08/03/2015 Overview (06/06/2016): Surgery [...] Type Department Care Team Description 10/18/2024 Telephone [facility] Medicine Surgery [address] [facility] Medical Office Building [address] [place] [address] Tawana Gallardo RN from Last [...] on file 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 Gender Identity Not on file Sexual Orientation [...] this topic Medical Devices Implanted Type Area Chlorinator Device Identifier Shelf Expiration Date Model / Serial / Lot On-X Intrnl Onxane-21 On-X 21mm 30mm 19.4mm 14.7mm 11.9mm Sewing Ring Heart 22.2mm - [id number] - [id number] Implanted:Qty: 1 on 03/05/2019 by Landon Montiel MD at [facility] N/A: Aortic Valve On-X Intrnl 08/20/2024 ONXANE-21 / [id number] / Insurance Matthew [employer] CLAIMS CIGNA CIG Advance Directives For more information, please contact: [phone] * Full Code (Latest Code Status on File) Date Activated Date Inactivated Comments 03/10/2019 3:08 PM 03/11/2019 4:36 AM * Full Code Date Activated Date Inactivated Comments 03/05/2019 12:53 PM 03/09/2019 5:07 PM Care Teams Mathematician Research Relationship Specialty Start Date End Date Eric Simmons [address] [place] [address] PCP - General Internal Medicine 12/28/21 Parag Pedraza MD PhD [address] [place] [address] Medical Oncologist/Telecommunications Switch Technician Hematology and Oncology 10/26/21 Chirag Epstein MD [phone] [place] [address] Surgeon Colon and Rectal Surgery 08/05/24
--- OUTSIDE RECORDS SUMMARY | 2024-11-22 00:11 | XMS_ITS | Clinical Summary ---
Author Organization [facility] on Address [address] [place] [address] Care Team Providers Care Materials Development Engineer Name Role Phone NurisdanyEric duke Primary Care [...] and Hematology - Alexis Jessica [address]in [address] [place] [address] Hermes Hernández MD Clotting disorder 11/01/2024 Orders Only [facility] Oncology and Hematology - Alexis Jessica Augustin [address] [place] [phone] Hermes Hernández MD Clotting disorder 10/18/2024 Orders Only [facility] Oncology and Hematology - Alexis Jessica [address]in [address] [place] [address] Hermes Hernández MD Clotting disorder 10/06/2024 External Device Data STL ABSTRACTION Provider, Abstract 10/04/2024 Orders Only [facility] Oncology and Hematology - Alexis Jesscia [address] [place] [address] Hermes Hernández MD Clotting disorder 09/20/2024 Orders Only [facility] Oncology and Hematology - Alexis Dorian [address] [place] [address] Hermes Hernández MD Clotting disorder 09/15/2024 External Device Data STL ABSTRACTION Provider, Abstract 09/14/2024 External Device Data STL ABSTRACTION Provider, Abstract 09/06/2024 Orders Only [facility] Oncology and Hematology - Alexis [address] [place] [address] Hermes Hernández MD Clotting disorder 08/31/2024 External Device Data STL ABSTRACTION Provider, Abstract 08/24/2024 4:30 PM CDT Telephone Check Up [facility] Oncology and Hematology - Alexis Dorian [address] [place] [address] Hermes Hernández MD Clotting disorder (Primary Dx) 08/24/2024 External Device Data STL ABSTRACTION Provider, Abstract 08/24/2024 External Device Data STL ABSTRACTION Provider, Abstract 08/23/2024 Orders Only [facility] Oncology and Hematology - Alexis Dorian [address] [place] [address] Hermes Hernández MD from Last 3 Months Family History Medical [...] [facility] Oncology and Hematology - [place] [address] [facility] [address] [place] [address] Hermes Hernández MD [address] [facility] [address] [place] [address] Health Maintenance Due Date Last Done Comments HEPATITIS B VACCINES (1 of 3 - 19+ 3-dose series) 2012 HPV/Cotest (21-29) 2014 HPV VACCINES (1 - 3-dose SCD M series) 2020 CERVICAL CANCER SCREENING 08/28/2023 HPV/Cotest (30-65) 08/28/2023 PAP SMEAR 08/28/2023 DTAP/TDAP/TD VACCINES (2 - T d or Tdap) 01/22/2024 01/21/2014 INFLUENZA VACCINE (#1) 2024 , 12/22/2017, 01/03/2015, Additional history exists Insurance [facility] CHOICE FUND OA PLUS Care Teams Materials Development Engineer Relationship Specialty Start Date End Date Eric Simmons DO [address] [facility] [address] [place] [address] PCP - General 08/20/22
[2024-12-01] VITALS (8 sets, daily range): BP systolic 95–124; BP diastolic 45–79; PULSE 74–82; RESP 14–18; TEMP 36.8–36.9; O2SAT 98–100
--- OUTSIDE RECORDS SUMMARY | 2024-12-01 00:44 | XMS_ITS | Clinical Summary ---
Author Organization [facility] D Address [address] [place] [address] Care Team Providers Care Nail Making Machine Tender Name Role Phone Parag Pedraza MD PhD Unavailable [phone] Eric Simmons DO Primary Care Provider [phone] Chirag Epstein MD Unavailable [phone] Allergies No known active allergies Medications SUMAtriptan [...] AREA EVERY DAY AT BEDTIME 5 Active enoxaparin (LOVENOX) 60 mg/0.6 mL syringe 0.6 mg (60 mg) under the skin (subcutaneousl y) every 12 hours as directed. 8.4 mL 1 5 Active Active Problems Patient Care Coordination No te Formatting of this note migh t be different from the original. Please add PCP Brian Villalta [phone], [place] [address] to Ms. 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 S/P ablation of atrial flutter 12/28/2021 S/P catheter ablation of slow pathway 12/28/2021 Hx of Ross procedure 12/28/2021 Palpitations 12/28/2021 Chronic anticoagulation 11/13/2021 Aftercare following surgery 04/08/2019 Aortic prosthetic valve regurgitation 02/26/2019 Overview (02/26/2019): Added automatically from request for surgery [id number] Patient encounter status 08/03/2015 Overview (06/06/2016): Surgery [...] Encounters Date Type Department Care Team Description 11/30/2024 Anticoagulation Visit [facility] [address] [place] [address] Danielle Murphy RN Hx of mechanical aortic valve replacement (Primary Dx); Atrial flutter, unspecified type (HCC) 11/25/2024 Anticoagulation Visit [facility] at [address] [place] [phone] Jimena Adams RN Hx of mechanical aortic valve replacement (Primary Dx) 11/25/2024 Telephone [facility] [address] [place] [address] Enoch Torres MD 10/18/2024 Telephone [facility] [address] [facility] Medical Office Building [address] [place] [address] Tawana Gallardo RN from Last [...] on file 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 Gender Identity Not on file Sexual Orientation [...] this topic Medical Devices Implanted Type Area Athletic Shoe Designer Device Identifier Shelf Expiration Date Model / Serial / Lot On-X Intrnl Onxane-21 On-X 21mm 30mm 19.4mm 14.7mm 11.9mm Sewing Ring Heart 22.2mm - [id number] - [id number] Implanted:Qty: 1 on 03/05/2019 by Landon Montiel MD at [facility] N/A: Aortic Valve On-X Intrnl 08/20/2024 ONXANE- / [id number] / Procedures Procedure Name Priority Date/Time Associated Diagnosis Comments PROTIME-INR Routine 11/29/2024 12:53 PM CDT Chronic anticoagulation from Last 3 Months Results * (ABNORMAL) Protime-INR (11/29/2024 12:53 PM CDT) INR 1.3(H) Protein BarS siomara Mcclain Comment: Reference Range 0.9-1.1 Moderate-intensity Warfarin Therapy 2.0-3.0 Higher-intensity Warfarin Therapy 3.0-4.0 PT 13.5(H) 9.0 - 11.5 sec Protein BarJaiden Mcclain Comment: For additional information, please refer to http://education.[employer]/faq/KYO788 (This link is being provided for informational/ educational purposes only.) Blood 11/29/2024 12:5 3 PM CDT 11/29/2024 12:54 PM CDT Enoch Torres MD LAB BLOOD ORDERABLES Rosalinda steele Result Performing Organization Address City/State/[facility] Co de Phone [facility] [address] [place] [address] from Last 3 Months Insurance [facility] CLAIMS CIGNA CIGNA Advance Directives For more information, please contact: [phone] * Full Code (Latest Code Status on File) Date Activated Date Inactivated Comments 03/10/2019 3:08 PM 03/11/2019 4:36 AM * Full Code Date Activated Date Inactivated Comments 03/05/2019 12:53 PM 03/09/2019 5:07 PM Care Teams Nail Making Machine Tender Relationship Specialty Start Date End Date Eric Simmons DO [address] [place] [address] PCP - General Internal Medicine 12/28/21 Parag Pedraza MD PhD [address] [place] [address] Medical Oncologist/Turf Sales Person Hematology and Oncology 10/26/21 Chirag Epstein MD [phone] [place] [address] Surgeon Colon and Rectal Surgery 08/05/24
--- OUTSIDE RECORDS SUMMARY | 2024-12-01 00:44 | XMS_ITS | Encounter Summary ---
Author Organization [facility] Healthcare Address [address] [place] [address] Care Team Providers Care Cross Enterprise Integrator Name Role Phone Parag Pedraza MD PhD Unavailable [phone] Eric Simmons DO Primary Care Provider [phone] Chirag Epstein MD Unavailable [phone] Encounter Details Date Type Department Care Team (Latest Contact Info) Description 11/30/2024 Anticoagulation Visit [facility] Cardiology [address] [place] [address] Danielle Murphy RN Hx of mechanical aortic valve replacement (Primary Dx); Atrial flutter, unspecified type (HCC) Social History Tobacco Use Types Packs/Day Years Used Date Smoking Tobacco: Passive Smo ke Exposure - Never Smoker Cigarettes Vaping Passive Smoke Exposure: Yes Smokeless Tobacco: Never Alcohol Use Standard Drinks/Week Comments Yes 0 (1 standard drink = 0.6 oz pur e alcohol) socially Comments No Sex and Gender Information Value Date Recorded Sex Assigned at Not on file 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 Gender Identity Not on file Sexual Orientation Not on file documented as of this encounter Plan of Treatment Not on file documented as of this encounter Visit Diagnoses Diagnosis Hx of mechanical aortic valve replacement- Primary Atrial flutter, unspecified type (HCC) documented in this encounter Care Teams Cross Enterprise Integrator Relationship Specialty Start Date End Date Eric Simmons DO [address] [place] [address] PCP - General Internal Medicine 12/28/21 Parag Pedraza MD PhD [address] [place] [address] Medical Oncologist/Metal Door Assembler Hematology and Oncology 10/26/21 Chirag Epstein MD [phone] [place] [address] Surgeon Colon and Rectal Surgery 08/05/24 documented as of this encounter
--- OUTSIDE RECORDS SUMMARY | 2024-12-01 00:44 | XMS_ITS | Encounter Summary ---
Author Organization [facility] Address [address] [place] [address] Care Team Providers Care Wire Charger Name Role Phone Eric Simmons DO Primary Care Provider Encounter Details Date Type Department Care Team (Late st Contact Info) Description 11/30/2024 External Device Data STL ABSTRACTION Provider, Abstract [...] Description 12/08/2024 1:15 PM CDT Office Visit [facility] Oncology and Hematology - [place]is [address] [facility] [address] [place] [address] Hermes Hernández MD [address] [facility] [address] [place] [address] documented as of this encounter Visit Diagnoses Not on filedocumented in this encounter Care Teams Wire Charger Relationship Specialty Start Date End Date Eric Simmons DO [address] [facility] [address] [place] [address] PCP - General 08/20/22 documented as of this encounter
--- OUTSIDE RECORDS SUMMARY | 2024-12-01 00:44 | XMS_ITS | Encounter Summary ---
Author Organization [facility] Healthcare Address [address] [place] [address] Care Team Providers Care Early Childhood Education Worker Name Role Phone Parag Pedraza MD PhD Unavailable [phone] Eric Simmons DO Primary Care Provider [phone] Chirag Epstein MD Unavailable [phone] Encounter Details Date Type Department Care Team (Late st Contact Info) Description 03/29/2024 Orders Only [facility] [place] Health Information Management [address] [place] [address] Scanning, Provider Social History Tobacco Use Types Packs/Day Years Used Date Smoking Tobacco: Passive Smo ke Exposure - Never Smoker Vaping Smokeless Tobacco: Never Alcohol Use Standard Drinks/Week Comments Yes 0 (1 standard drink = 0.6 oz pur e alcohol) socially Comments No Sex and Gender Information Value Date Recorded Sex Assigned at Not on file 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
--- OUTSIDE RECORDS SUMMARY | 2024-12-01 00:44 | XMS_ITS | Encounter Summary ---
Author Organization [facility] [employer] [facility] Address [address] [place] [address] Care Team Providers Care Chief Legal Officer Name Role Phone Eric Simmons Primary Care Provider Encounter Details Date Type Department Care Team ([facility] Contact Info) Description 11/29/2024 Orders Only [facility] Oncology and Hematology [address] [place] [address] Hermes Hernández MD [facility] [address] [place] [address] Clotting disorder Social History Tobacco Use [...] Description 12/08/2024 1:15 PM CDT Office Visit [facility] Oncology and Hematology [address] [place] [address] Hermes Hernández MD [facility] [address] [place] [address] documented as of this encounter Visit Diagnoses Diagnosis Clotting disorder Other and unspecified coagulation defects documented in this encounter Care Teams Chief Legal Officer Relationship Specialty Start Date End Date Eric Simmons DO [address] [facility] [address] [place] [address] PCP - General 08/20/22 documented as of this encounter
--- OUTSIDE RECORDS SUMMARY | 2024-12-01 00:44 | XMS_ITS | Clinical Summary ---
Author Organization [facility] on Address [address] [place] [id number] Care Team Providers Care Rubber Roller Grinder Operator Name Role Phone Eric Simmons Primary Care Provider Allergies No known active [...] Date Type Department Care Team Description 11/30/2024 External Device Data STL ABSTRACTION Provider, Abstract 11/29/2024 Orders Only [facility] Oncology and Hematology - Alexis [address] [place] [address] Hermes Hernández MD Clotting disorder 11/16/2024 External Device Data STL ABSTRACTION Provider, Abstract 11/15/2024 Orders Only [facility] Oncology and Hematology - Alexis [address] [place] [address] Hermes Hernández MD Clotting disorder 11/01/2024 Orders Only [facility] Oncology and Hematology - Alexis [address] [place] [address] Hermes Hernández MD Clotting disorder 10/18/2024 Orders Only [facility] Oncology and Hematology - Alexis [address] [place] [address] Hermes Hernández MD Clotting disorder 10/06/2024 External Device Data STL ABSTRACTION Provider, Abstract 10/04/2024 Orders Only [facility] Oncology and Hematology - Alexis [address] [place] [address] Hermes Hernández MD Clotting disorder 09/20/2024 Orders Only [facility] Oncology and Hematology - Alexis [address] [place] [address] Hermes Hernández MD Clotting disorder 09/15/2024 External Device Data STL ABSTRACTION Provider, Abstract 09/14/2024 External Device Data STL ABSTRACTION Provider, Abstract 09/06/2024 Orders Only [facility] Oncology and Hematology - Alexis [address] [place] [address] Hermes Hernández MD Clotting disorder 08/31/2024 External Device Data STL ABSTRACTION Provider, Abstract from Last 3 Months Family History Medical [...] Description 12/08/2024 1:15 PM CDT Office Visit [facility] Oncology and Hematology - Alexis [address] [facility] [address] [place] [address] Hermes Hernández MD [address] [facility] [address] [place] [address] Health Maintenance Due Date Last Done Comments HEPATITIS B VACCINES (1 of 3 - 19+ 3-dose series) 2012 HPV/Cotest (21-29) 2014 HPV VACCINES (1 - 3-dose SCD M series) 2020 CERVICAL CANCER SCREENING 08/28/2023 HPV/Cotest (30-65) 08/28/2023 PAP SMEAR 08/28/2023 DTAP/TDAP/TD VACCINES (2 - T d or Tdap) 01/22/2024 01/21/2014 INFLUENZA VACCINE (#1) 2024 , 12/22/2017, 01/03/2015, Additional history exists Insurance [facility] OA PLUS Care Teams Rubber Roller Grinder Operator Relationship Specialty Start Date End Date Eric Simmons DO [address] [facility] [address] [place] [address] PCP - General 08/20/22
--- NOTE | 2024-12-01 11:03 | PM.IMHP ---
H&P: HPI History of Present Illness Date/Time: 12/01/24 11:03 Chief Complaint: hemorrhoids Narrative: Ms. Jose presents to the office at the request of LUIS Rg for evaluation. Patient has very painful hemorrhoids. She's tried cortisone cream, lidocaine jelly, and sitz baths without relief. Some bleeding with wiping after BMs. Also feels a spasm sensation after BMs. Was evaluated by a colorectal surgery, but they recommended conservative treatment and she isn't able to follow-up with them until late November. Review of Systems Review of Systems: All systems reviewed & are unremarkable except as noted in HPI and below PMFSH Past Medical History Medical History Encounter for routine gynecological examination with Papanicolaou smear of cervix Wound of lower extremity Vaginal discharge Missed period Possible exposure to STD Atrial flutter Status post successful ablation without any clinical recurrence SVT (supraventricular tachycardia) Heart disease Migraine Headache Anxiety Surgical History Surgical History History of endometrial ablation 2021 H/O cardiac radiofrequency ablation H/O aortic valve replacement 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-s/p ablation 02/15/21 Family History Family History Mother Depression Anxiety Grandparent Pancreatic cancer Social History Social History Social History: Caffeine-coffee Smoking status: Never smoker Alcohol intake: current Alcohol use details: socially Substance use: current Substance use type: marijuana Do You Feel Safe in your Home?: No Lack of Transportation: No Lack of Food: Never True Current Housing: I Have Housing Concerned About Future Housing: No Difficulty Paying Gas/Electric Bills: No Difficulty Paying for Meds: No Currently Unemployed: No Education: High School Diploma/GED Difficulty w/ Childcare or Family Care: No Living arrangements: alone Occupation/Education: occupation Gender identity (if verbalized by the patient): Female Sexual Orientation (if Verbalized by the Patient): Straight or Heterosexual Spiritual care concerns: No Meds Home Medications and Allergies Home Medications ?Medication ?Instructions ?Recorded ?Confirmed ?Type cholecalciferol (vitamin D3) 1,250 1,250 mcg PO WEEKLY #8 tabs 03/25/24 11/23/24 Rx mcg (50,000 unit) tablet metoprolol succinate 50 mg 50 mg PO DAILY #90 tabs 03/25/24 11/12/24 Rx tablet,extended release 24 hr sumatriptan succinate 100 mg See Rx Instructions PO .COMPLEX #9 03/25/24 11/12/24 Rx tablet (Imitrex) tabs warfarin 10 mg tablet 20 mg (2 x 10 mg) PO DAILY #180 03/25/24 11/12/24 Rx tabs norethindrone (contraceptive) 0.35 0.35 mg PO DAILY #84 tabs 05/14/24 11/12/24 Rx mg tablet (Julianne) hydrocortisone 2.5 % topical cream 1 applic RECTAL QHS PRN 06/01/24 11/12/24 Rx with perineal applicator hemorrhoids #30 grams (Proctosol HC) tretinoin 0.025 % topical cream 1 applic topical QHS #45 grams 07/09/24 11/12/24 Rx Allergies Allergy/AdvReac Type Severity Reaction Status Date / Time No Known Allergies Allergy Unknown Verified 11/23/24 10:29 Exam Const: General: cooperative, comfortable and no acute distress Resp: Auscultation: clear to auscultation bilaterally Cardio: Rate: regular rate Rhythm: regular rhythm GI: Inspection: normal to inspection Assessment and Plan Assessment and plan (1) Bleeding hemorrhoids: Code(s): K64.9 - Unspecified hemorrhoids Status: Acute Assessment and Plan: setup for EUA, hemorrhoidectomy
--- NOTE | 2024-12-01 11:05 | WPDHPUPDATE1 ---
History and Physical Update Update Date/Time: 12/01/24 11:05 History and Physical has been reviewed, including an updated exam of the patient. There are NO changes in the patient's condition. Risks, benefits, and alternatives have been discussed and questions answered. Patient agrees to proceed with procedure.
[2024-12-01] MEDS: LACTATED RINGERS 1,000 ML 30 ML IV CONT (13:55)
[2024-12-01] MEDS: KETOROLAC 15 MG/ML VIAL (*BKC) IV PUSH (14:00)
[2024-12-01 14:18] LABS: INR 1.1; Prothrombin Time 14.4 Seconds (11.1-14.7)
[2024-12-01 14:19] LABS: Partial Thromboplastin Time 33.7 Seconds (22.3-36.8)
[2024-12-01] MEDS: ACETAMINOPHEN 500 MG TABLET 1000 MG PO (14:23)
--- NOTE | 2024-12-01 14:26 | SUR.PREOP ---
1040 SPOKE WITH PT, INFORMED OF SURGERY TIME DELAY. INFORMED TO ARRIVE AT 1300 UNLESS INFORMED TO DO OTHERWISE. 1235 PT HERE, INFORMED OF CONTINUED DELAY, PT INFORMED TO RETURN AT 1315. 1330 PT CALLED AND ASKED TO RETURN.
--- NOTE | 2024-12-01 14:27 | P.PNAN_ITS ---
Anes - Initial Pre Proc Eval Procedure: Operation Date: 12/01/24 14:00 Proposed Procedures p Rectal Examination Under Anesthesia, Hemorrhoidectomy - Ana Cristina King MD Date/Time: 12/01/24 14:27 Surgeon: Ana Cristina King MD Pre Op Diagnosis: hemorrhoids Patient Data Age: 29 Gender: F Height: 1.65 m Weight: 60 kg Last Vital Signs Temp 36.8 C 12/01/24 13:45 Pulse 75 12/01/24 13:45 Resp 16 12/01/24 13:45 BP 122/73 12/01/24 13:45 Pulse Ox 98 12/01/24 13:45 O2 Del Method Room Air 12/01/24 13:45 Allergies Allergy/AdvReac Type Severity Reaction Status Date / Time No Known Allergies Allergy Unknown Verified 12/01/24 14:15 Home Medications ?Medication ?Instructions ?Recorded ?Confirmed ?Type cholecalciferol (vitamin D3) 1,250 1,250 mcg PO WEEKLY #8 tabs 03/25/24 11/23/24 Rx mcg (50,000 unit) tablet metoprolol succinate 50 mg 50 mg PO DAILY #90 tabs 12/01/24 Rx tablet,extended release 24 hr sumatriptan succinate 100 mg See Rx Instructions PO .C OMPLEX #9 03/25/24 11/12/24 Rx tablet (Imitrex) tabs warfarin 10 mg tablet 20 mg (2 x 10 mg) PO DAILY # 180 03/25/24 12/01/24 Rx tabs norethindrone (contraceptive) 0.35 0.35 mg PO DAILY #8 4 tabs 05/14/24 12/01/24 Rx mg tablet (Julianne) hydrocortisone 2.5 % topical cream 1 applic RECTAL QHS PRN 06/01/24 11/12/24 Rx with perineal applicator hemorrhoids #30 grams (Proctosol HC) tretinoin 0.025 % topical cream 1 applic topical QHS # 45 grams 07/09/24 12/01/24 Rx Laboratory Tests 12/01/24 13:57 PT 14.4 Seconds (11.1-14.7) INR 1.1 APTT 33.7 Seconds (22.3-36.8) Patient hx anesthesia problems: none Family hx anesthesia problems: none Results Review: All pre-operative results and documents have been reviewed as part of the pre- operative evaluation. 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-s/p ablation 02/15/21 Family History Family History Mother Depression Anxiety Grandparent Pancreatic cancer Social History Social History Social History: Caffeine-coffee Smoking status: Never smoker Alcohol intake: current Alcohol use details: socially Substance use: current Substance use type: marijuana Do You Feel Safe in your Home?: No Lack of Transportation: No Lack of Food: Never True Current Housing: I Have Housing Concerned About Future Housing: No Difficulty Paying Gas/Electric Bills: No Difficulty Paying for Meds: No Currently Unemployed: No Education: High School Diploma/GED Difficulty w/ Childcare or Family Care: No Living arrangements: alone Occupation/Education: occupation Gender identity (if verbalized by the patient): Female Sexual Orientation (if Verbalized by the Patient): Straight or Heterosexual Spiritual care concerns: No Anes - Eval Final PreProcedure Day of Procedure 12/01/24 14:27 Patient weight: normal Heart: regular rate and rhythm Lungs: clear to auscultation Airway: Mallampati scale class II Neurological: alert and oriented Last oral intake: >/= 8 hours ASA classification: II Emergent: no Anesthetic plan: proceed Anesthesia type and monitoring: general LMA and standard monitoring Results Review: All pre-operative results and documents have been reviewed as part of the pre- operative evaluation. Informed Consent: The patient's anesthetic plan and its attendant risks and benefits were discussed with the patient/family/POA. Questions were solicited and answers provided to the satisfaction of the patient/family/POA.
[2024-12-01] MEDS: SCOPOLAMINE 1 MG PATCH 1 PATCH TRANSDERM (14:41)
[2024-12-01] MEDS: LIDOCAINE 2% GEL UROJET 10 ML PKG MUCOUS MEM (14:44)
[2024-12-01] MEDS: ceFAZolin 2 GM in SODIUM CHLORIDE 0.9% IV 50 ML 100 ML IVPB (14:46)
[2024-12-01 14:59] LABS: BEDSIDEPREGUCG Negative (Negative)
--- NOTE | 2024-12-01 15:07 | S_PTH ---
PATIENT: Kayla Jose LOC: [facility] U#:[id number] AGE/SX: 29/F ROOM: RE12/01/[address]: Ana Cristina King MD : 1995 BED: DIS: 12/01/2024 SPEC #: [id number] RECD: 12/02/24 08:39 STATUS: JOAQUINA REQ #: [id number] JOSHUA: 12/01/24 15:[address]: Ana Cristina King DEPT: [facility] Surgical RECD BY: Ivon Malhotra MLT, ([facility]) ENTERED: 12/02/24 08:40 SP TYPE: Surgical OTHR DR: Eric Simmons DO Tissues: A - Hemorroid Procedures: Hematoxylin and Eosin Stain Gross and Microscopic Level 3
--- NOTE | 2024-12-01 15:33 | P.OP_ITS ---
Procedure Note - Detailed Date of Procedure 12/01/24 Pre-op Diagnosis bleeding, thrombosed external hemorrhoids Post-op Diagnosis Same Procedure Performed Exam under anesthesia, external hemorrhoidectomy involving left lateral and right anterior positions Surgeon Ana Cristina King MD Anesthesia General and Local Indications 29-year-old female presenting to the office with multiple bleeding, thrombosed external hemorrhoids. Patient with longstanding history and reports hemorrhoids are refractory to all conservative management. Findings bleeding thrombosed external hemorrhoids x5 Description of Procedure The patient was taken to the operating room and placed in the modified lithotomy position. After adequate induction of general anesthesia, the patient was prepped and draped in the normal sterile fashion. A time-out was then done to verify the patient's identity, as well as the procedure being performed. I began by doing a digital exam. There was noted to be multiple thrombosed external hemorrhoids, however no internal hemorrhoids were noted. At this point, a bilateral pudendal block was done. Then used the lone Star retractor to further evaluate the anal canal as well as rectum, other than external hemorrhoids no other pathology was noted. I then began excising the external hemorrhoids using the hand-held LigaSure device. The hemorrhoids were noted to be in the left lateral and right anterior positions. Multiple hemorrhoids were excised using the LigaSure. A total of 5 thrombosed external hemorrhoids were excised. The specimens will be sent to pathology for further review. He mostasis was noted at all excision sites. I then placed a piece of Gelfoam covered with lidocaine jelly into the rectal vault. The patient tolerated the procedure and was extubated in the operating room postop. She will be transferred to the recovery room in stable condition. Implants Gelfoam covered with lidocaine jelly in the rectal vault Estimated Blood Loss 10 Drains No Packing Yes Pathology Yes Complications No immediate complications Condition Stable Disposition PACU [facility] Billing Surgery - Charge Forward: Surgery Billing
[2024-12-01] MEDS: oxyCODONE HCL (*CRX) 5 MG TAB IR PO (16:32)
== END 2024-12-01 16:50 | disposition home or self-care (01) ==
PROVIDERS: Anesthesiology; PCP Internal Medicine; Visit Provider Surgery
PROC: (CPT 46320; principal; 2024-12-01 14:00)
DX: K64.5 Perianal venous thrombosis (principal); I48.92 Unspecified atrial flutter; I47.10 Supraventricular tachycardia, unspecified; I51.9 Heart disease, unspecified; F41.9 Anxiety disorder, unspecified; F12.90 Cannabis use, unspecified, uncomplicated; Z79.01 Long term (current) use of anticoagulants; Z95.2 Presence of prosthetic heart valve; Z98.891 History of uterine scar from previous surgery; Z86.79 Personal history of other diseases of the circulatory system; Z80.0 Family history of malignant neoplasm of digestive organs
CPT/HCPCS: 46320; 46250; 36415; 85610; 85730; 88304; J0690; A9270; J1100; J1885; J2250; J2405; J2704; J3010; J7120